=== PATIENT | male | born 1970 | race Caucasian/White ===

== ENCOUNTER 2020-12-28 21:18 | Inpatient (IN) | payer OTHER, SELFPAY ==
[2020-12-28] VITALS (10 sets, daily range): BP systolic 87–132; BP diastolic 44–83; PULSE 64–121; RESP 13–20; TEMP 36.5–36.8; O2SAT 90–100; BMI 24.3; BMI 25.8; BMI 25.4
--- NOTE | 2020-12-28 | IR_ITS ---
APPROVED REPORT Patient Location: [facility]: JANAY Gimenez RT (R) PROCEDURES Left heart catheterization Left ventriculogram Selective coronary angiogram Thrombectomy followed by drug-eluting stent deployment to the proximal dominant right coronary artery Drug-eluting stent deployment to the proximal and mid LAD in a contiguous manner INDICATION Acute inferior lateral ST elevation myocardial infarction, Coronary artery disease, Severe LAD disease Informed consent was obtained prior to the procedure. COMPLICATIONS None Estimated Blood Loss: Less than 10 mls TECHNIQUE One percent lidocaine used to anesthetize the right anterior aspect of the wrist. The right radial artery was accessed via the Seldinger technique. A 6 British sheath was placed in the right radial artery. 2.5 mg of verapamil, 800 mcg of nitroglycerin, 1mg Lidocaine and 5000 U Heparin were given through the arterial sheath. A trap catheter was used to intubate the dominant right coronary artery and angiography was performed. A Choice PT extra-support wire was used to push through the acute occlusion and a penumbra catheter was then used to aspirate a thrombus thereby restoring JESUS ALBERTO-3 flow. IV phenylephrine was required for blood pressure support. A 3 mm x 38 mm resolute Vern stent was deployed at 20 karine reducing the critical disease to 0%. JESUS ALBERTO 0 flow was present at the beginning of the procedure with JESUS ALBERTO-3 flow at the end of the procedure. Following this the same catheter was used to perform left heart catheterization and left ventriculogram. The catheter was then placed in the left main artery where angiography demonstrated severe LAD disease. Choice PT wire was placed distally and a 3.5 x 26 mm resolute [place] stent was deployed at 16 karine reducing the severe stenosis to 0%. Distally there was a hazy 50% stenosis therefore an additional 3.5 x 15 mm resolute [place] stent was deployed at 12 karine distal to the first stent yet still overlapping it. The balloon was brought back between the 2 stents and deployed at 16 karine for meshing. JESUS ALBERTO-3 flow was present before and after the procedure. After achieving excellent angiographic results the apparatus was removed the sheath was removed good hemostasis was achieved using TR banding patient was transferred to the postop holding area stable condition. Intermittent heparin was administered based on ACT results ANGIOGRAPHIC RESULTS The left main artery Normal The left anterior descending artery Has a proximal concentric 70 to 80% stenosis followed by mid vessel 30 and 40% stenoses The circumflex artery Nondominant with mild 10% luminal irregularities The right coronary artery Dominant vessel initially proximally occluded. Following stenting the vessel was widely patent with persistent distal 40% stenoses which extended into the posterior lateral branch with mild 10% stenosis in the posterior descending artery The CARY ventriculogram reveals Dilated ventricle inferior hypokinesis estimate ejection fraction 45% The left ventricular end-diastolic pressure 20 mmHg IMPRESSION Coronary disease as described above Successful thrombectomy of the proximal dominant right coronary artery followed by drug-eluting stent deployment 100% occlusion reduced to 0% with 1 drug-eluting stent Severe disease in the proximal to mid LAD with successful stenting the proximal to mid LAD in a contiguous manner reducing the severe disease to 0% Dilated ventricle with regional wall motion abnormality and mildly reduced ejection fraction Mildly elevated LVEDP PLAN 1. Brilinta 90 twice daily plus aspirin 81 mg daily 2. LDL less than 55 3. FRANCINE inhibitors and beta-blockers once hemodynamicall
--- NOTE | 2020-12-28 21:15 | ECG_ITS ---
APPROVED REPORT Exam: Resting ECG HR:79 bpm ECG Measurements Heart Rate 79 AXES NE 140 P 56 QRSd 86 QRS 63 QT 336 T 97 QTc 385 Conclusion Sinus rhythm with occasional premature ventricular complexes Possible Left atrial enlargement Inferior infarct, possibly acute Anterior infarct, possibly acute Lateral injury pattern ACUTE MA Consider right ventricular involvement in acute inferior infarct Abnormal ECG Electronically signed by : Clint Jules, 12/29/2020 19:36:23
--- NOTE | 2020-12-28 21:18 | PC.NURSE ---
stemi alert called prior to arrival of patient. dr rg and cath team en route to facility. pt placed in gown, groin and wrist shaved. received 500NS fluids prior to arrival via ems and IV to RAC. during this time patient stated i'm a little dizzy , eyes rolled back in his head and he became unresponsive. ZOLL monitor showed vfib. ZOLL charged to 120J, one shock given, immediate response of HR noted. pt woke up immediately.
--- NOTE | 2020-12-28 21:25 | XR_ITS ---
PROCEDURE: XR CHEST PORTABLE CLINICAL HISTORY: STEMI ALERT, CHEST PAIN COMPARISON: CR CXR CHEST(2 VIEWS-NOT PORTABLE) from 12/20/2016 FINDINGS: The cardiomediastinal silhouette and pulmonary vascularity are within normal limits. The lungs are clear without infiltrates, suspicious nodules, or pleural effusions. Is an old right 4th rib fracture an old 7th and 8th rib fractures. IMPRESSION: No acute findings. Dictated by: Jeremy Leon MD 12/29/2020 05:40 Jeremy Leon MD in [place] 12/29/2020 05:40
--- NOTE | 2020-12-28 21:32 | HMH.EDCP ---
ED Disposition Clinical Impression: Ventricular fibrillation, Tobacco use ST elevation myocardial infarction (STEMI) Qualifiers: Involved coronary artery: unspecified coronary artery Qualified Code(s): I21.3 - ST elevation (STEMI) myocardial infarction of unspecified site Hyperlipidemia Qualifiers: Hyperlipidemia type: unspecified Qualified Code(s): E78.5 - Hyperlipidemia, unspecified Disposition: Admitted As Inpatient Condition on Discharge: Critical - Critical Care Critical Care Time: No Attestation: On 12/28/20, the high probability of a clinically significant, sudden or life threatening deterioration of the following system(s) required my full and direct attention, intervention and personal management. The time I documented below is in addition to time spent performing reported procedures but includes the following listed in this critical care notation. Medical Decision Making - Medical Records Medical records reviewed: Yes: I reviewed the patient's medical records. - Mckay Inquiry Pt receiving controlled substance: No Vital Signs: 12/28/20 21:17 Temperature 98.2 F Temperature Source Oral Pulse Rate [Right Brachial] 112 H Respiratory Rate 18 Blood Pressure [Right Arm] 132/83 Blood Pressure Mean [Right Arm] 99 Blood Pressure Source [Right Arm] Automatic Cuff Blood Pressure Position [Right Arm] Sitting 02 Sat by Pulse Oximetry 98 Oxygen Delivery Method Room Air - Lab Data Lab results reviewed: Yes: I reviewed the patient's lab results. Lab Results 12/28/20 21:32: WBC 19.8 H, RBC 5.43, Hgb 16.9, Hct 50.2, MCV 92.5, MCH 31.2, MCHC 33.7, RDW 13.5, Plt Count 233, MPV 7.8, Neut % (Auto) 88.7 H, Lymph % (Auto) 6.3 L, [place] % (Auto) 4.5, Eos % (Auto) 0.1, Baso % (Auto) 0.5, Neut # (Auto) 17.5 H, Lymph # (Auto) 1.3, [place] # (Auto) 0.9, Eos # (Auto) 0.0, Baso # (Auto) 0.1 12/28/20 21:32: Sodium 137, Potassium 3.7, Chloride 102, Carbon Dioxide 28, Anion Gap 10.7, BUN 18, Creatinine 1.10, Estimated Creat Clear 82, Estimated GFR 71, Est GFR ( Amer) 85, Glucose 146 H, Calcium 9.6, Troponin I 0.43 H, NT-Pro-B Natriuret Pep 205 H 12/28/20 21:32: Total Bilirubin 0.5, Direct Bilirubin 0.2, Conjugated Bilirubin 0.0, Indirect Bilirubin 0.3, Unconjugated Bilirubin 0.3, AST 41, ALT 34, Alkaline Phosphatase 81, Total Protein 7.4, Albumin 4.5, Triglycerides 230 H, Cholesterol 243 H, LDL Cholesterol Direct 158.06 H, VLDL Cholesterol 46 H, HDL Cholesterol 51, Cholesterol/HDL Ratio 4.8 H Result diagrams: 12/28/20 21:32 12/28/20 21:32 Orders (Tests/Meds): ED MEDICATIONS Generic Name Dose Route Start Last Admin Trade Name Freq PRN Reason Stop Dose Admin Diphenhydramine HCl 50 mg 12/28/20 21:23 12/28/20 21:44 Diphenhydramine 50mg/Ml Vial IV 12/28/20 21:24 50 mg ONCE ONE Administration Fentanyl Citrate 25 mcg 12/28/20 21:23 12/28/20 22:09 Fentanyl 100mcg/2ml Vial IV 12/29/20 21:23 100 mcg Q3MINP PRN Administration Moderate to Severe Pain Fentanyl Citrate 50 mcg 12/28/20 21:23 Fentanyl 100mcg/2ml Vial IV 12/29/20 21:23 Q3MINP PRN Moderate to Severe Pain Fentanyl Citrate 25 mcg 12/28/20 21:23 Fentanyl 250mcg/5ml Vial IV 12/29/20 21:23 Q3MINP PRN Moderate to Severe Pain Fentanyl Citrate 50 mcg 12/28/20 21:23 Fentanyl 250mcg/5ml Vial IV 12/29/20 21:23 Q3MINP PRN Moderate to Severe Pain Flumazenil 0.2 mg 12/28/20 21:23 Flumazenil 0.1mg/Ml 5ml Vial IV 12/28/20 23:00 NEEDED PRN Sedation Heparin Sodium (Porcine) 10,000 unit 12/28/20 21:23 12/28/20 22:10 Heparin 1,000 Units/Ml 10ml Vial (Brick Tender) IV 12/29/20 01:23 5,000 unit NEEDED PRN Administration Emergency [place] Plant Supervisor Heparin Sodium/Sodium Chloride 3,000 unit 12/28/20 21:23 12/28/20 21:44 Heparin 1,000 Units/500ml Ns (Brick Tender) IV 12/28/20 21:24 3,000 unit ONCE ONE Administration Sodium Chloride 1,000 mls @ 25 mls/hr 12/28/20 21:30
--- NOTE | 2020-12-28 21:35 | PC.NURSE ---
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 reported to silvia bird and silvia pantoja
[2020-12-28 21:40] LABS: Basophils # 0.1 K/mm3 (0-0.2); Basophils % 0.5 % (0.1-2.0); Eosinophils % 0.1 % (0.1-12.0); Hematocrit 50.2 % (42.0-52.0); Hemoglobin 16.9 g/dL (14.1-18.0); Lymphocytes # 1.3 K/mm3 (0.7-4.5); Lymphocytes % 6.3 % (10-50); Mean Corpuscular HGB Conc 33.7 g/dL (31.8-35.4); Mean Corpuscular Hemoglobin 31.2 pg (27.0-31.2); Mean Corpuscular Volume 92.5 fl (80-94); Mean Platelet Volume 7.8 fl (7.4-10.4); Monocytes # 0.9 K/mm3 (0.1-1.0); Monocytes % 4.5 % (1.7-9.3); Neutrophils # 17.5 K/mm3 (1.8-7.8); Neutrophils % 88.7 % (37.0-80.0); Platelet Count 233 K/mm3 (142-424); Red Blood Count 5.43 M/mm3 (4.60-6.20); Red Cell Distribution Width 13.5 % (11.5-17.5); White Blood Count 19.8 K/mm3 (4.8-10.8)
[2020-12-28 21:43] LABS: MANUAL DIFFERENTIAL MANUAL DIFFERENTIAL (MANUAL DIFF)
[2020-12-28 21:48] LABS: Chloride 102 mmol/L (98-107); Potassium 3.7 mmoL/L (3.5-5.1); Sodium 137 mmol/L (136-145)
[2020-12-28 21:50] LABS: Alanine Aminotransferase 34 U/L (12-78); Aspartate Amino Transferase 41 U/L (17-59); Bilirubin,Unconjugated 0.3 mg/dL (0.0-1.1)
[2020-12-28 21:51] LABS: Albumin Level 4.5 g/dl (3.5-5.0); Alkaline Phosphatase 81 U/L (38-126); Anion Gap 10.7 mEq/L (5-15); Bilirubin,Direct 0.2 mg/dl (0.0-0.4); Bilirubin,Indirect 0.3 mg/dL (0.0-0.9); Bilirubin,Total 0.5 mg/dl (0.2-1.3); Blood Urea Nitrogen 18 mg/dl (9-20); Carbon Dioxide 28 mmol/L (22.0-30.0); Chol/HDL Ratio 4.8 (1-3.5); Cholesterol 243 mg/dl (140-200); Creatinine Clearance Estimated 82 mL/min (50-200); Estimated Glomerular Filt Rate 71 ml/min (>60); GFR (African American) 85 ML/MIN (>60); HDL Cholesterol 51 mg/dl (40-60); Total Protein,Serum 7.4 g/dl (6.3-8.2); Triglycerides 230 mg/dl (30-150); VLDL Cholesterol 46 mg/dL (0-40)
[2020-12-28 21:52] LABS: Calcium 9.6 mg/dl (8.4-10.2); Glucose 146 mg/dl (74-100)
[2020-12-28 22:01] LABS: Adenovirus,PCR Not Detected (NotDetected); Bordetella Pertussis Not Detected (NotDetected); Chlamydophila Pneumoniae, PCR Not Detected (NotDetected); Coronavirus 19, PCR Not Detected (NotDetected); Coronavirus 229E Not Detected (NotDetected); Coronavirus NL63 Not Detected (NotDetected); Coronavirus OC43 Not Detected (NotDetected); Coronovirus HKU1,PCR Not Detected (NotDetected); Human Metapneumovirus Not Detected (NotDetected); Influenza A, PCR Not Detected (NotDetected); Influenza AH1, 2009 Not Detected (NotDetected); Influenza AH1, PCR Not Detected (NotDetected); Influenza AH3,PCR Not Detected (NotDetected); Influenza B, PCR Not Detected (NotDetected); Mycoplasma Pneumoniae, PCR Not Detected (NotDetected); Parainfluenza 1, PCR Not Detected (NotDetected); Parainfluenza 2, PCR Not Detected (NotDetected); Parainfluenza 3, PCR Not Detected (NotDetected); Parainfluenza 4, PCR Not Detected (NotDetected); Respiratory Syncytial Virus Not Detected (NotDetected); Rhinovirus/Enterovirus Not Detected (NotDetected)
[2020-12-28 22:02] LABS: Direct LDL Cholesterol 158.06 mg/dL (100-129); NT Pro Brain Natriuretic Pep. 205 pg/mL (0-125)
[2020-12-28 22:06] LABS: Troponin I 0.43 ng/ml (0.00-0.034)
[2020-12-28 22:24] LABS: Thyroid Stimulating Hormone 1.98 uIU/mL (0.465-4.68)
[2020-12-28 22:27] LABS: CATHL Activated Clotting Time 242 SEC (74-125)
[2020-12-28 22:28] LABS: CATHL Activated Clotting Time 277 SEC (74-125)
--- NOTE | 2020-12-28 23:09 | PC.NURSE ---
patient up to floor via stretcher.
[2020-12-28 23:58] LABS: Lymphocytes % 9 % (10-50); Monocytes % 1 % (2-9); Neutrophils % 90 % (42-76); Platelet Estimate Normal; RBC Morphology Normal; Total Cells Counted 100
[2020-12-29] VITALS (25 sets, daily range): BP systolic 95–141; BP diastolic 58–99; PULSE 50–77; RESP 16–18; TEMP 36.6–36.8; O2SAT 94–100; BMI 25.4
--- NOTE | 2020-12-29 04:54 | PC.NURSE ---
Patient has not slept much during the night due to cath site. When initially letting air out of the band, site started bleeding so the air was put back in. I have been able to get 8 mL of air out so far (started with 18) safely with no bleeding. He has shown NSR with ST elevation and inverted T waves on telemetry. Patient has had a run of V tach 4 times; between 4 and 9 beats each time. No change in symptoms during this time. Pulses are the same, 2+ in all areas except pedal pulses 1+ (right radial not assessed due to cath site). Vital signs have remained stable. Patient was drowsy when first brought to the floor and 2L/NC was placed due to SpO2 < 90%. Will try to wean once awake.
[2020-12-29 06:54] LABS: Anion Gap 9.3 mEq/L (5-15); Blood Urea Nitrogen 13 mg/dl (9-20); Carbon Dioxide 23 mmol/L (22.0-30.0); Chloride 109 mmol/L (98-107); Creatinine Clearance Estimated 111 mL/min (50-200); Estimated Glomerular Filt Rate 102 ml/min (>60); GFR (African American) 123 ML/MIN (>60); Glucose 104 mg/dl (74-100); Potassium 4.3 mmoL/L (3.5-5.1); Sodium 137 mmol/L (136-145)
--- NOTE | 2020-12-29 06:59 | HMH.HP ---
*Admission Date: 12/28/20 *Chief complaint: STEMI, chest pain, V-fib *History of present illness: Mr. Tellez is a 50-year-old male with no significant cardiac history. He is a longtime smoker, no other risk factors. Presented to the ER last night after onset of chest pain while having sexual intercourse. States he had taken off the market Viagra prior to sex. Developed chest pain that did not get better with cessation of activity. Took naproxen and called 911. EMS arrived and administered nitroglycerin with no improvement in symptoms. On arrival to the ER went into V. fib necessitating cardioversion. Was urgently taken to the Security Incident Handler for intervention. Patient was found to have proximal LAD stenosis of 70 to 80% necessitating stenting. Improvement in flow immediately after procedure. One drug-eluting stent deployed. Also noted to have dilated ventricle with regional wall motion and mildly reduced EF. Echo pending this morning. Patient has had no further chest pain since intervention. Blood pressures remained stable. No further arrhythmias appreciated overnight. Patient appears quite pensive this morning and worried because of the event. States he had not been having any chest pain or shortness of breath with exertion at work and walks between 10 to 15 miles a day. Also reports however having a similar episode a month ago that resolved spontaneously with cessation of activity. [facility] History I have reviewed the patient's past medical history: Yes Medical History: Denies:: Cancer, Diabetes Mellitus Type 1, Diabetes Mellitus Type 2, MRSA *Have you ever received a pneumonia vaccine?: No *Have you received a flu vaccine this season?: No Other Surgeries: Yes: No Previous Surgery - *Social History Last grade of school completed: 11th or 12th Smoking Status: Current every day smoker Tobacco Type: cigarettes # Packs/Day (cigarettes): 1 Alcohol Intake: never *Occupational Status:: employed Housing: house Household Members: none *Travel in the last 8 weeks: None Family Hx:: No significant family history Review of Systems - Review of Systems Review of systems:: pertinent systems reviewed and negative unless documented below (14 point review of systems performed, pertinent positives and negatives as per HPI) - *Neurologic Denies headache(s), Denies seizure-like activity Meds Home Medications Medication Instructions Recorded Confirmed Type No Known Home Medications 12/28/20 12/28/20 History Allergies Allergy/AdvReac Type Severity Reaction Status Date / Time No Known Allergies Allergy Verified 12/25/20 11:11 Exam Vital signs and Labs for Last 24 Hours: Temp Pulse Resp BP Pulse Ox 97.8 F 68 18 116/77 98 12/28/20 23:18 12/29/20 05:30 12/29/20 05:30 12/29/20 05:30 12/29/20 05:30 Laboratory Results - last 24 hr 12/28/20 21:32: WBC 19.8 H, RBC 5.43, Hgb 16.9, Hct 50.2, MCV 92.5, MCH 31.2, MCHC 33.7, RDW 13.5, Plt Count 233, MPV 7.8, Neut % (Auto) 88.7 H, Lymph % (Auto) 6.3 L, [place] % (Auto) 4.5, Eos % (Auto) 0.1, Baso % (Auto) 0.5, Neut # (Auto) 17.5 H, Lymph # (Auto) 1.3, [place] # (Auto) 0.9, Eos # (Auto) 0.0, Baso # (Auto) 0.1, Total Counted 100, Neutrophils % (Manual) 90 H, Lymphocytes % (Manual) 9 L, Monocytes % (Manual) 1 L, Platelet Estimate Normal, RBC Morphology Normal 12/28/20 21:32: Sodium 137, Potassium 3.7, Chloride 102, Carbon Dioxide 28, Anion Gap 10.7, BUN 18, Creatinine 1.10, Estimated Creat Clear 82, Estimated GFR 71, Est GFR ( Amer) 85, Glucose 146 H, Calcium 9.6, Troponin I 0.43 H, NT-Pro-B Natriuret Pep 205 H, TSH 1.98 12/28/20 21:32: Total Bilirubin 0.5, Direct Bilirubin 0.2, Conjugated Bilirubin 0.0, Indirect Bilirubin 0.3, Unconjugated Bilirubin 0.3, AST 41, ALT 34, Alkaline Phosphatase 81, Total Protein 7.4, Albumin 4.5, Triglycerides 230 H, Cholesterol 243 H, LDL Cholesterol Direct 158.06 H, VLDL Cholesterol 46 H, HDL Cholesterol 51, Cholesterol/HDL Ratio 4.8 H 12/28/20 21:4
[2020-12-29 07:44] LABS: Basophils % 0.3 % (0.1-2.0); Eosinophils % 0.1 % (0.1-12.0); Hematocrit 45.4 % (42.0-52.0); Lymphocytes # 1.6 K/mm3 (0.7-4.5); Lymphocytes % 15.5 % (10-50); Mean Corpuscular HGB Conc 32.8 g/dL (31.8-35.4); Mean Corpuscular Hemoglobin 31.4 pg (27.0-31.2); Mean Corpuscular Volume 95.6 fl (80-94); Mean Platelet Volume 8.1 fl (7.4-10.4); Monocytes # 0.6 K/mm3 (0.1-1.0); Monocytes % 6.2 % (1.7-9.3); Neutrophils % 77.8 % (37.0-80.0); Platelet Count 170 K/mm3 (142-424); Red Blood Count 4.74 M/mm3 (4.60-6.20); Red Cell Distribution Width 13.4 % (11.5-17.5); White Blood Count 10.3 K/mm3 (4.8-10.8)
[2020-12-29 07:48] LABS: Hemoglobin 14.9 g/dL (14.1-18.0)
--- NOTE | 2020-12-29 07:56 | PC.NURSE ---
2100 0f 12/28/2020 was notifed to call labor service representative team in ...latonia dent,marge woodson,and kit verdugo notified. I NOTIFIED RADIOLOGY TO TURN ON NEEDED EQUIPMENT IN [place]GLISH FACULTY MEMBER.
--- NOTE | 2020-12-29 08:00 | CA_ITS ---
APPROVED REPORT EXAM: Comprehensive 2D, Doppler, and color-flow Echocardiogram Business Intelligence Developer: Sharmin Pulliam RT(R) Ht: 5 ft 6 in Wt: 160lbs BSA: 1.82 BP: 132/83 mmHg Indications: STEMI, CP, smoker, cath 12/28/20 ef 45% 2D Dimensions LVOT 1.87 cm (M/F) 1.5-2.5 LVEF (Buitrago's) 45.10 % M: 52 - 72 LV Volume 91.70 mL M: 62 - 150 LV Volume Index 50.38 mL/m2 M: 34 - 74 LA Volume 21.60 mL LA Volume Index 11.86 mL/m2 (M/F) 16-34 M-Mode Dimensions RVDd 2.54 cm (0.9-2.6) LA Diam 3.48 cm (1.9-4.0) LVDd 4.29 cm (3.5-5.7) Ao Diam 2.55 cm (2.0-3.7) LVDs 3.43 cm (3.5-5.7) IVSd 1.29 cm (0.6-1.1) PWd 0.61 cm (0.6-1.1) EF (Teich) 41.30% FS 20.00% EDV (Teich) 82.60 mL ESV (Teich) 48.50 mL LV Diastology E Decel Time 163.00 (160-240 msec) E/A Ratio 0.9 MED E' 5.60 (< 7 cm/sec) E'/MED E' Ratio 13.95 (>14) LAT E' 8.10 (<10 cm/sec) E/LAT E' Ratio 9.64 (>14) Mitral Valve MV E Max Fabian. 78.00 (40-130 cm/s) MV A Velocity 91.00 (40-130 cm/s) E/A Ratio 0.85 MV Decel. Time 163.00 (160-240 ms) MV PHT 48.00 ms Left Ventricle Left atrium is mildly enlarged, left ventricle is normal size, mild concentric left ventricular hypertrophy, visually estimated ejection fraction approximately 45%, there is marked hypokinesis involving the inferior apical and inferior wall. Grade 1 diastolic dysfunction seen without tissue Doppler evidence of raise left atrial pressure. Right Ventricle Right atrium and right ventricle are normal size and contractility. Aortic valve is thickened and calcified without aortic stenosis or aortic insufficiency. Mitral Valve Mitral valve is grossly normal, there is trace mitral regurgitation. Tricuspid Valve Tricuspid grossly normal, there is trace tricuspid regurgitation, tricuspid regurgitation jet velocity is inadequate for calculation of the right ventricular systolic pressure. Pulmonic Valve Pulmonic valve is poorly visualized. Great Vessels Aortic root is normal size. Pericardium No significant pericardial effusion noted. Conclusion 1. Normal left ventricular size, mild concentric left ventricular hypertrophy, visually estimated ejection fraction 45% with multiple segmental wall motion abnormality described above, grade 1 diastolic dysfunction seen without tissue Doppler evidence of raise left atrial pressure. 2. Trace mitral and tricuspid regurgitation. 3. No significant pericardial effusion noted. Electronically signed by : Ari Florian, 12/29/2020 21:59:34
[2020-12-29 08:01] LABS: Calcium 8.2 mg/dl (8.4-10.2)
--- NOTE | 2020-12-29 08:09 | HMH.PHAVTE ---
[facility] Pharmacy VTE Monitoring - Patient Demographics Admission date: 12/29/20 Report Date: 12/29/20 Time: 08:09 Allergies/Adverse Reactions: Patient Allergies No Known Allergies Allergy (Verified 12/25/20 11:11) Height: 1.68 m Weight: 71.696 kg Patient Problems: Current Active Problems ST elevation myocardial infarction (STEMI) (Acute) Ventricular fibrillation (Acute) Tobacco use (Acute) Hyperlipidemia (Acute) - VTE Risk Labs: VTE Related Lab Results Hgb 14.9 g/dL (14.1-18.0) D 12/29/20 05:35 Hct 45.4 % (42.0-52.0) 12/29/20 05:35 Plt Count 170 K/mm3 (142-424) D 12/29/20 05:35 BUN 13 mg/dl (9-20) D 12/29/20 05:35 Creatinine 0.80 mg/dl (0.66-1.25) D 12/29/20 05:35 Estimated Creat Clear 111 mL/min (50-200) 12/29/20 05:35 Was VTE Risk Assessment Performed: Yes VTE Score: 1 VTE Risk Level: Very Low Risk Clinical Trial Participant: No - Prophylaxis VTE Prophylaxis Ordered?: Yes Types of VTE Prophylaxis: TEDS Knee High
--- NOTE | 2020-12-29 10:35 | HMH.CNCARD ---
History of Present Illness Consult date: 12/29/20 Requesting physician: Albert Yen Consult reason: chest pain Chief complaint: chest pain History of present illness: This is a 50-year-old gentleman who was admitted to the hospital with chest pain. The patient states that the chest pain started after having sex. He states that he had taken an off market Viagra prior to having sex and then after having sex he had sudden onset of chest pain. He states that this was a pressure sensation in the center of his chest. The patient states that the chest pain would not go away so he took some naproxen and then called 911. He states that the pain radiated to his bilateral shoulders and arms and up into his neck and back. He states he was short of breath and diaphoretic with the chest pain. He also had significant nausea with the chest pain. He states nothing was helping to improve his chest pain. It did get worse with exertion. After calling 911 he was treated with fluids and nitroglycerin x2 doses by EMS with no relief in his symptoms. The patient states that this was a severe 10 out of 10 pain. He had never had symptoms like this before. The patient was taken directly to the cardiac catheterization lab and had thrombectomy and stenting to his right coronary artery as well as stenting to his LAD. He tolerated the procedure well and will remain on dual antiplatelet therapy with Brilinta and aspirin. This morning he states he is feeling much better. He denies any chest pain or pressure this morning. He denies any shortness of breath or edema. He denies any fever, chills, nausea, vomiting, diarrhea, PND or orthopnea. The patient did have ventricular fibrillation during his [place] History I have reviewed the patient's past medical history: Yes Medical History: Reports:: Coronary Artery Disease, Hyperlipidemia Denies:: Cancer, Diabetes Mellitus Type 1, Diabetes Mellitus Type 2, MRSA *Have you ever received a pneumonia vaccine?: No *Have you received a flu vaccine this season?: No Other Surgeries: Yes: No Previous Surgery - *Social History Last grade of school completed: 11th or 12th Smoking Status: Current every day smoker Tobacco Type: cigarettes # Packs/Day (cigarettes): 1 Alcohol Intake: never *Occupational Status:: employed Housing: house Household Members: none *Travel in the last 8 weeks: None Family Hx:: Coronary Artery Disease Meds Home Medications Medication Instructions Recorded Confirmed Type No Known Home Medications 12/28/20 12/28/20 History Allergies Allergy/AdvReac Type Severity Reaction Status Date / Time No Known Allergies Allergy Verified 12/25/20 11:11 Exam Vital signs and Labs for Last 24 Hours: Temp Pulse Resp BP Pulse Ox 97.8 F 67 18 120/83 97 12/28/20 23:18 12/29/20 10:00 12/29/20 10:00 12/29/20 10:00 12/29/20 10:00 Laboratory Results - last 24 hr 12/28/20 21:32: WBC 19.8 H, RBC 5.43, Hgb 16.9, Hct 50.2, MCV 92.5, MCH 31.2, MCHC 33.7, RDW 13.5, Plt Count 233, MPV 7.8, Neut % (Auto) 88.7 H, Lymph % (Auto) 6.3 L, [place] % (Auto) 4.5, Eos % (Auto) 0.1, Baso % (Auto) 0.5, Neut # (Auto) 17.5 H, Lymph # (Auto) 1.3, [place] # (Auto) 0.9, Eos # (Auto) 0.0, Baso # (Auto) 0.1, Total Counted 100, Neutrophils % (Manual) 90 H, Lymphocytes % (Manual) 9 L, Monocytes % (Manual) 1 L, Platelet Estimate Normal, RBC Morphology Normal 12/28/20 21:32: Sodium 137, Potassium 3.7, Chloride 102, Carbon Dioxide 28, Anion Gap 10.7, BUN 18, Creatinine 1.10, Estimated Creat Clear 82, Estimated GFR 71, Est GFR ( Amer) 85, Glucose 146 H, Calcium 9.6, Troponin I 0.43 H, NT-Pro-B Natriuret Pep 205 H, TSH 1.98 12/28/20 21:32: Total Bilirubin 0.5, Direct Bilirubin 0.2, Conjugated Bilirubin 0.0, Indirect Bilirubin 0.3, Unconjugated Bilirubin 0.3, AST 41, ALT 34, Alkaline Phosphatase 81, Total Protein 7.4, Albumin 4.5, Triglycerides 230 H, Cholesterol 243 H, LDL Cholesterol Direct 158.06 H, VLDL Cholesterol 46 H, HDL C
--- NOTE | 2020-12-29 17:36 | PC.NURSE ---
Pt is alert and oriented x3. Lungs are clear, bowel sounds active x4. He was weaned from 2L NC to RA and tolerated well. O2 sat is currently 98% on RA. Dressing to right radial site is clean, dry, and intact. Dried blood noted on skin around dressing from radial band but dressing itself is clean. He denies chest pain, sob, n/v and diaphoresis. NSR w/inverted t wave on telemetry. He has had a couple runs of asymptomatic vtach. Runs have been no longer than 6 beats. No complaints verbalized. Will continue to monitor.
--- NOTE | 2020-12-29 23:43 | PC.NURSE ---
He is A&Ox4. Reports some SOA and is wearing 2LPM n/c per his request for comfort. He denies chest pain. He reported some back pain but states it is tolerable. Bradycardia while asleep and NSR while awake with ST elevation and inverted T wave.
[2020-12-30] VITALS (12 sets, daily range): BP systolic 96–152; BP diastolic 57–97; PULSE 59–92; RESP 16–18; TEMP 36.5–36.9; O2SAT 96–100; BMI 24.7
[2020-12-30 06:27] LABS: Basophils % 0.3 % (0.1-2.0); Eosinophils # 0.1 K/mm3 (0.0-0.4); Eosinophils % 0.9 % (0.1-12.0); Hematocrit 42.4 % (42.0-52.0); Hemoglobin 13.8 g/dL (14.1-18.0); Lymphocytes # 2.1 K/mm3 (0.7-4.5); Lymphocytes % 24.4 % (10-50); Mean Corpuscular HGB Conc 32.6 g/dL (31.8-35.4); Mean Corpuscular Volume 95.3 fl (80-94); Mean Platelet Volume 8.2 fl (7.4-10.4); Monocytes # 0.7 K/mm3 (0.1-1.0); Monocytes % 7.8 % (1.7-9.3); Neutrophils # 5.6 K/mm3 (1.8-7.8); Neutrophils % 66.4 % (37.0-80.0); Platelet Count 147 K/mm3 (142-424); Red Blood Count 4.45 M/mm3 (4.60-6.20); Red Cell Distribution Width 13.5 % (11.5-17.5); White Blood Count 8.4 K/mm3 (4.8-10.8)
[2020-12-30 06:34] LABS: Anion Gap 5.2 mEq/L (5-15); Blood Urea Nitrogen 11 mg/dl (9-20); Calcium 8.5 mg/dl (8.4-10.2); Carbon Dioxide 28 mmol/L (22.0-30.0); Chloride 111 mmol/L (98-107); Creatinine Clearance Estimated 108 mL/min (50-200); Estimated Glomerular Filt Rate 102 ml/min (>60); GFR (African American) 123 ML/MIN (>60); Glucose 99 mg/dl (74-100); Potassium 4.2 mmoL/L (3.5-5.1); Sodium 140 mmol/L (136-145)
--- NOTE | 2020-12-30 08:11 | HMH.DCSUM ---
General - General Admission date:: 12/28/20 Discharge date: 12/30/20 HPI HPI: Mr. Tellez is a 50-year-old male with no significant cardiac history. He is a longtime smoker, no other risk factors. Presented to the ER last night after onset of chest pain while having sexual intercourse. States he had taken off the market Viagra prior to sex. Developed chest pain that did not get better with cessation of activity. Took naproxen and called 911. EMS arrived and administered nitroglycerin with no improvement in symptoms. On arrival to the ER went into V. fib necessitating cardioversion. Was urgently taken to the [facility] for intervention. Patient was found to have proximal LAD stenosis of 70 to 80% necessitating stenting. Improvement in flow immediately after procedure. One drug-eluting stent deployed. Also noted to have dilated ventricle with regional wall motion and mildly reduced EF. Echo pending this morning. Patient has had no further chest pain since intervention. Blood pressures remained stable. No further arrhythmias appreciated overnight. Patient appears quite pensive this morning and worried because of the event. States he had not been having any chest pain or shortness of breath with exertion at work and walks between 10 to 15 miles a day. Also reports however having a similar episode a month ago that resolved spontaneously with cessation of activity. Hospital Course Hospital Course: Patient was admitted and urgently taken to heart cath, results as noted below: ANGIOGRAPHIC RESULTS The left main artery Normal The left anterior descending artery Has a proximal concentric 70 to 80% stenosis followed by mid vessel 30 and 40% stenoses The circumflex artery Nondominant with mild 10% luminal irregularities The right coronary artery Dominant vessel initially proximally occluded. Following stenting the vessel was widely patent with persistent distal 40% stenoses which extended into the posterior lateral branch with mild 10% stenosis in the posterior descending artery The CARY ventriculogram reveals Dilated ventricle inferior hypokinesis estimate ejection fraction 45% The left ventricular end-diastolic pressure 20 mmHg IMPRESSION Coronary disease as described above Successful thrombectomy of the proximal dominant right coronary artery followed by drug-eluting stent deployment 100% occlusion reduced to 0% with 1 drug-eluting stent Severe disease in the proximal to mid LAD with successful stenting the proximal to mid LAD in a contiguous manner reducing the severe disease to 0% Dilated ventricle with regional wall motion abnormality and mildly reduced ejection fraction Mildly elevated LVEDP PLAN 1. Brilinta 90 twice daily plus aspirin 81 mg daily 2. LDL less than 55 3. FRANCINE inhibitors and beta-blockers once hemodynamically stable 4. Supportive care with telemetry monitoring over the next 48 hours 5. Echocardiogram 6. Avoidance of tobacco products 7. Cardiac rehabilitation Patient did well over the next 36 hours. He will be discharged this afternoon pending continuing normal telemetry monitoring. We will follow him up closely in my office as well as with cardiology clinic. Patient will need home sleep study given his report of snoring and waking himself up at night with snoring. Objective Vital signs: Temp Pulse Resp BP Pulse Ox 97.7 F 61 17 135/86 97 12/30/20 04:00 12/30/20 06:00 12/29/20 20:00 12/30/20 06:00 12/30/20 06:00 no acute distress - *Routine HEENT Exam Head: Present: normocephalic Eye: Present: EOMI, PERRL ENT: Present: mucous membranes moist - *Routine Neck Exam Present: supple - *Routine Respiratory Exam Present: CTA bilaterally - *Routine Cardiovascular Exam Present: RRR - *Routine Abdominal Exam Present: soft, normoactive bowel sounds. Absent: tenderness - *Routine Extremities Exam Absent: cyanosis, clubbing, edema - *Routine Skin Exam
--- NOTE | 2020-12-30 10:45 | HMH.PHACLD ---
Lorenzo Tellez has received discharge medication counseling on the following medications: MD SENDING PATIENT HOME WITH SCRIPTS FOR ASPIRIN DR 81 MG DAILY, BRILINTA 90 MG BID, ATORVASTATIN 80 MG HS, METOPROLOL SUCCINATE 25 MG DAILY, AND LISINOPRIL 5 MG DAILY. MD ALSO SENDING PATIENT HOME WITH SCRIPT FOR NICOTINE PATCHES. COUNSELED PATIENT ON THE NEED TO STOP SMOKING.
--- NOTE | 2020-12-30 11:43 | HMH.PNCARD ---
Subjective Date: 12/30/20 Time: 11:43 Principal diagnosis: stemi Interval history: This is a 50-year-old gentleman who was admitted to the hospital with chest pain. The patient was found to have a STEMI and was taken directly to the cardiac catheterization laboratory and underwent thrombectomy and stenting to his right coronary artery as well as stenting to his LAD. The patient has tolerated the procedure well and will remain on dual antiplatelet therapy with Brilinta and aspirin. The patient denies any chest pain or pressure this morning. He denies any shortness of breath or edema. He denies any fever, chills, nausea, vomiting, diarrhea, PND orthopnea. The patient did have ventricular fibrillation during his [place] prior to going to the [facility] and did have to be shocked. He has had no recurrence of the ventricular fibrillation. He has had a few nonsustained runs of ventricular tachycardia. He was asymptomatic during these episodes. Exam Vital signs and Labs for Last 24 Hours: Temp Pulse Resp BP Pulse Ox 98.4 F 92 H 18 131/60 97 12/30/20 08:00 12/30/20 08:00 12/30/20 08:00 12/30/20 08:00 12/30/20 08:00 Laboratory Results - last 24 hr 12/30/20 06:02: WBC 8.4, RBC 4.45 L, Hgb 13.8 L, Hct 42.4, MCV 95.3 H, MCH 31.0, MCHC 32.6, RDW 13.5, Plt Count 147, MPV 8.2, Neut % (Auto) 66.4, Lymph % (Auto) 24.4, Coffey % (Auto) 7.8, Eos % (Auto) 0.9, Baso % (Auto) 0.3, Neut # (Auto) 5.6, Lymph # (Auto) 2.1, Coffey # (Auto) 0.7, Eos # (Auto) 0.1, Baso # (Auto) 0.0 12/30/20 06:02: Sodium 140, Potassium 4.2, Chloride 111 H, Carbon Dioxide 28 D, Anion Gap 5.2, BUN 11, Creatinine 0.80, Estimated Creat Clear 108, Estimated GFR 102, Est GFR ( Amer) 123, Glucose 99, Calcium 8.5 I & O for Last 24 hours: Intake & Output 12/27/20 12/28/20 12/29/20 12/30/20 23:59 23:59 23:59 23:59 Intake Total 850 / 850 1981 / 1981 1678 / 1678 Output Total 900 / 900 Balance 850 / 300 1082 / 1082 1677 / 8 Weight 158 lb 1 oz 158 lb 1 oz 154 lb 3 oz Narrative: Telemetry strip is sinus rhythm with a rate of 59. echo shows: 1. Normal left ventricular size, mild concentric left ventricular hypertrophy, visually estimated ejection fraction 45% with multiple segmental wall motion abnormality described above, grade 1 diastolic dysfunction seen without tissue Doppler evidence of raise left atrial pressure. 2. Trace mitral and tricuspid regurgitation. 3. No significant pericardial effusion noted. - Constitutional no acute distress, average body habitus - *Routine HEENT Exam Head: Present: normocephalic, atraumatic Eye: Present: EOMI, PERRL ENT: Present: mucous membranes moist - *Routine Neck Exam Present: supple, full ROM, normal carotid upstroke. Absent: JVD, carotid bruit, lymphadenopathy - *Routine Respiratory Exam Present: CTA bilaterally - *Routine Cardiovascular Exam Present: RRR, Normal S1, Normal S2. Absent: murmur - *Routine Abdominal Exam Present: soft, normoactive bowel sounds. Absent: tenderness, distended - *Routine Extremities Exam Present: full ROM, pulses intact, normal capillary refill. Absent: cyanosis, clubbing, edema - *Routine Skin Exam Present: intact, warm. Absent: erythema, rash - *Routine Neurological Exam Present: alert, oriented X3, CN II-XII intact. Absent: sensory deficit, motor deficit Progress Note: A&P (1) ST elevation myocardial infarction (STEMI) Status: Resolved (2) Ventricular fibrillation Status: Resolved (3) CAD (coronary artery disease) Status: Chronic (4) Hyperlipidemia Status: Chronic (5) Stented coronary artery Status: Chronic (6) Tobacco use Status: Chronic (7) Ventricular tachycardia Status: Acute Assessment and Plan for All Diagnoses:: plan: 1. The patient was admitted to the hospital with a STEMI. He underwent thrombectomy and stenting to the right coronary artery as well as stenting to the LAD. The patient will remain o
--- NOTE | 2020-12-30 13:09 | PC.NURSE ---
Clarified conversation with A Balwinder from earlier in the shift. pt is to not receive Beta Wm (Coreg) related to bradycardia. medication is on the mar but is to be dc
--- NOTE | 2020-12-30 13:13 | PC.NURSE ---
Per Dr Brown pt is to remain an inpatient until approx 2200 this evening r/t needing to stay until 48hr s/p STEMI/intervention. Family and patient request that since it will be such a late discharge, could the patient be discharged the following day instead. request approved by Dr Brown and Dr Jules. DC order to be cancelled at this time.
--- NOTE | 2020-12-30 13:48 | PC.NURSE ---
clarified with a black that it is ok for pt to come out of sd
[2020-12-31] VITALS: BP 114/56; PULSE 65; PULSE 70; RESP 17; TEMP 36.5; O2SAT 99
--- NOTE | 2020-12-31 00:32 | PC.NURSE ---
He is A&Ox4. He reports some SOA but continues on RA. VSS. DSG in place on his right wrist per his request. Denies chest pain.
[2020-12-31 03:51] VITALS: BP 115/75; PULSE 68; RESP 16; TEMP 36.6; O2SAT 95
[2020-12-31 04:00] VITALS: PULSE 70
[2020-12-31 05:00] VITALS: BMI 24.6
[2020-12-31 08:00] VITALS: BP 132/93; PULSE 63; RESP 16; TEMP 36.7; O2SAT 98
--- NOTE | 2020-12-31 09:35 | HMH.PNCARD ---
Subjective Date: 12/31/20 Time: 09:20 Principal diagnosis: stemi Interval history: This is a 50-year-old white gentleman who was admitted to the hospital with chest pain. He was found to have a STEMI and was taken to the [facility] and had thrombectomy and stenting to the right coronary artery as well as stenting to the LAD. He is on dual antiplatelet therapy with Brilinta and aspirin and tolerating this well. This morning he denies any chest pain or pressure. He denies any shortness of breath or edema. He denies any fever, chills, nausea, vomiting, diarrhea, PND or orthopnea. The patient did have discharge orders and yesterday but was unable to be discharged until 10 PM last night. He did not have a ride that late at night so he stayed overnight again and is being discharged this morning. Exam Vital signs and Labs for Last 24 Hours: Temp Pulse Resp BP Pulse Ox 98.1 F 63 16 132/93 H 98 12/31/20 08:00 12/31/20 08:00 12/31/20 08:00 12/31/20 08:00 12/31/20 08:00 I & O for Last 24 hours: Intake & Output 12/28/20 12/29/20 12/30/20 12/31/20 23:59 23:59 23:59 23:59 Intake Total 850 / 850 1981 2278 / 2278 360 / 360 Output Total 900 / 900 Balance 850 / 300 1082 / 1082 2278 / 2278 360 / 360 Weight 158 lb 1 oz 158 lb 1 oz 154 lb 3 oz 153 lb 3 oz - Constitutional no acute distress, average body habitus - *Routine HEENT Exam Head: Present: normocephalic, atraumatic Eye: Present: EOMI, PERRL ENT: Present: mucous membranes moist - *Routine Neck Exam Present: supple, full ROM, normal carotid upstroke. Absent: JVD, carotid bruit, lymphadenopathy - *Routine Respiratory Exam Present: CTA bilaterally - *Routine Cardiovascular Exam Present: RRR, Normal S1, Normal S2. Absent: murmur - *Routine Abdominal Exam Present: soft, normoactive bowel sounds. Absent: tenderness, distended - *Routine Extremities Exam Present: full ROM, pulses intact, normal capillary refill. Absent: cyanosis, clubbing, edema - *Routine Skin Exam Present: intact, warm. Absent: erythema, rash - *Routine Neurological Exam Present: alert, oriented X3, CN II-XII intact. Absent: sensory deficit, motor deficit Progress Note: A&P (1) ST elevation myocardial infarction (STEMI) Status: Resolved (2) Ventricular fibrillation Status: Resolved (3) CAD (coronary artery disease) Status: Chronic (4) Hyperlipidemia Status: Chronic (5) Stented coronary artery Status: Chronic (6) Tobacco use Status: Chronic (7) Ventricular tachycardia Status: Acute Assessment and Plan for All Diagnoses:: plan: 1. The patient was admitted to the hospital with a STEMI and had thrombectomy and stenting to the right coronary artery as well as stenting to the LAD. The patient will remain on Brilinta and aspirin for dual antiplatelet therapy. 2. The patient did have ventricular fibrillation prior to going to the cardiac catheterization laboratory where he had to be shocked. He has had a few nonsustained runs of ventricular tachycardia since being admitted but none overnight. He has been asymptomatic. The patient has been on telemetry for greater than 48 hours and is stable for discharge home at this time. 3. His coronary artery disease is likely stable. On Brilinta and aspirin. 4. His blood pressure is well controlled. 5. His LDL goal is less than 55. His LDL is 158. On Lipitor. 6. He has been started on lisinopril post SD. 7. His heart rate is too low for beta-jasmin. We will try to start this on an outpatient basis. 8. The patient does have cardiomyopathy with an ejection fraction of 45%. As mentioned above he is on lisinopril and will try to get a beta-jasmin started as an outpatient as his heart rate is too low at this time. 9. The patient is stable for discharge home from a cardiac standpoint. He will need to follow-up in cardiology clinic at the beginning of next week. Thank you for the opportunity to help krishna
== END 2020-12-31 10:29 | disposition home or self-care (01) | DRG 246 ==
LOC: ER 21:34 → CATHLAB 21:39 → 2ND 22:42
PROVIDERS: Internal Medicine; Admitting Provider Internal Medicine Adolescent Medicine; Emergency Provider Emergency Medicine; Visit Provider Internal Medicine Adolescent Medicine
PROC: 027135Z Dilation of Coronary Artery, Two Arteries with Two Drug-eluting Intraluminal Devices, Percutaneous Approach (ICD-10-PCS; principal; 2020-12-28 21:20)
DX: I21.19 ST elevation (STEMI) myocardial infarction involving other coronary artery of inferior wall (principal); I49.01 Ventricular fibrillation; I25.10 Atherosclerotic heart disease of native coronary artery without angina pectoris; Z72.0 Tobacco use
CPT/HCPCS: 36415; 71045; 80048; 80061; 80076; 83735; 83880; 84443; 84484; 85007; 85025; 85347; 87581; 87633; 87798; 92928; 92941; 93005; 93306; 93458; 96365; 96375; 99152; 99153; 99284; C1725; C1769; C1874; C1876; C9600; C9606; J1644; Q9967

== ENCOUNTER → 2021-01-06 13:17 | Outpatient (CLI) | payer OTHER, SELFPAY ==
[2021-01-06 13:34] LABS: Hematocrit 48.5 % (42.0-52.0); Hemoglobin 15.9 g/dL (14.1-18.0)
[2021-01-06 14:01] LABS: Blood Urea Nitrogen 13 mg/dl (9-20); Estimated Glomerular Filt Rate 89 ml/min (>60); GFR (African American) 108 ML/MIN (>60)
== END ==
PROVIDERS: Visit Provider Internal Medicine
DX: Z01.818 Encounter for other preprocedural examination (principal)
CPT/HCPCS: 36415; 82565; 84520; 85014; 85018

== ENCOUNTER → 2021-01-07 08:48 | Outpatient (CLI) | payer OTHER, SELFPAY ==
--- NOTE | 2021-01-07 08:51 | CA_ITS ---
APPROVED REPORT [employer] Worker: CT Laterality: Bilateral Study Quality: Good Indications: cad Risk Factors Hypertension: Hyperlipidemia Smoking VT last week 3 stents Doppler Spectral Velocity Analysis ECA (R) 96.30/12.20 cm/s ECA (L) 106.70/15.30 cm/s dICA (R) 77.80/35.30 cm/s dICA (L) 71.70/30.90 cm/s Odilia (R) 79.50/30.20 cm/s Odilia (L) 58.40/22.10 cm/s pICA (R) 63.20/25.20 cm/s pICA (L) 59.40/20.60 cm/s dCCA (R) 113.30/29.90 cm/s dCCA (L) 105.40/25.70 cm/s pCCA (R) 109.00/22.00 cm/s pCCA (L) 112.00/21.40 cm/s Vert (R) 44.60/18.50 cm/s Vert (L) 40.40/11.30 cm/s ICA/CCA 0.70 ICA/CCA 0.70 Findings Duplex evaluation demonstrates stenosis of the right proximal internal carotid artery <20%. Duplex evaluation demonstrates stenosis of the left proximal internal carotid artery <20%. Duplex evaluation demonstrates antegrade flow of the bilateral Vertebral Arteries. Thyroid cysts noted. Electronically signed by : Jeremy Leon MD 01/07/2021 15:58:48
== END ==
PROVIDERS: PCP Internal Medicine Adolescent Medicine; Visit Provider Internal Medicine Adolescent Medicine
DX: Z82.49 Family history of ischemic heart disease and other diseases of the circulatory system (principal)
CPT/HCPCS: 93880

== ENCOUNTER 2021-01-13 12:45 | Outpatient (RCR) | payer OTHER, SELFPAY | END 2021-04-23 11:17 | disposition home or self-care (01) | LOC: PT 12:45 | PROVIDERS: Visit Provider Internal Medicine | DX: Z95.5 Presence of coronary angioplasty implant and graft (principal); I25.10 Atherosclerotic heart disease of native coronary artery without angina pectoris; I25.2 Old myocardial infarction | CPT/HCPCS: 93798 ==

== ENCOUNTER → 2021-08-04 13:55 | Outpatient (CLI) | payer SELFPAY ==
[2021-08-04 15:21] LABS: Alanine Aminotransferase 75 U/L (12-78); Albumin Level 4.2 g/dl (3.5-5.0); Alkaline Phosphatase 53 U/L (38-126); Aspartate Amino Transferase 67 U/L (17-59); Bilirubin,Direct 0.3 mg/dl (0.0-0.4); Bilirubin,Total 0.3 mg/dl (0.2-1.3); Chol/HDL Ratio 2.6 (1-3.5); Cholesterol 121 mg/dl (140-200); HDL Cholesterol 46 mg/dl (40-60); Total Protein,Serum 6.7 g/dl (6.3-8.2); Triglycerides 84 mg/dl (30-150); VLDL Cholesterol 17 mg/dL (0-40)
[2021-08-04 15:32] LABS: Direct LDL Cholesterol 54.37 mg/dL (100-129)
== END ==
PROVIDERS: Visit Provider Urology
DX: I11.9 Hypertensive heart disease without heart failure (principal); E11.9 Type 2 diabetes mellitus without complications
CPT/HCPCS: 36415; 80061; 80076

== ENCOUNTER → 2022-07-27 12:41 | Outpatient (CLI) | payer BC, SELFPAY ==
--- NOTE | 2022-07-27 12:44 | CT_ITS ---
FINAL REPORT CLINICAL HISTORY: H/O NICOTINE DEPENDENCE 52-year-old smoker with 30 pack year smoking history. FINDINGS: Low-Dose Chest CT Axial images were obtained from the lung apex to the mid abdomen by computed tomography. Low-dose protocol was utilized. CTDI vol (mGy): 2.90 DLP (mGy-cm): 101.07 There is no axillary adenopathy. There is no hilar or mediastinal adenopathy. The heart is proper size. There is no pericardial or pleural effusion. Lung window images demonstrate no suspicious nodule or infiltrate. There is a calcified granuloma in the left lower lobe. Limited images of the upper abdomen demonstrate postoperative changes from cholecystectomy. IMPRESSION: No suspicious nodule or infiltrate is identified. Lung RADS category 1. Recommend 12 month follow-up low-dose chest CT. Reviewed, Interpreted and Dictated by Onofre García III, MD Transcribed by Delilah Guzman Authenticated and [facility]
== END ==
PROVIDERS: PCP Internal Medicine Adolescent Medicine; Visit Provider Internal Medicine Adolescent Medicine
DX: Z87.891 Personal history of nicotine dependence (principal); Z12.2 Encounter for screening for malignant neoplasm of respiratory organs
CPT/HCPCS: 71271

== ENCOUNTER 2022-10-21 10:19 | Day surgery (SDC) | payer BC, SELFPAY ==
[2022-10-14 12:18] VITALS: BMI 24.2
[2022-10-21] VITALS (7 sets, daily range): BP systolic 91–120; BP diastolic 60–78; PULSE 58–67; RESP 16–17; TEMP 36.2–36.3; O2SAT 90–99
--- NOTE | 2022-10-21 12:16 | EXP.GEN.HP ---
HPI HPI HPI: Patient is a 52-year-old male from [facility] referred by Dr. Clint Jules for upper endoscopy.? Patient does have a history of reflux.? He apparently had previously undergone upper endoscopy he states 10 or 15 years ago he believes in [facility] at which time he had his esophagus stretched .? Recently he has developed symptoms of burning substernal pain when eating with symptoms consistent with the dysphagia.? He has been unable to have some foods past such as hamburger and breads.? He has relief of his symptoms when he is standing.? He has had some excessive belching.? He is currently on Nexium but has not noticed any change.? Patient does have a previous history of [place] in December 2020 with stents.? He does smoke a pack of cigarettes per daily.? No significant alcohol. [facility] Disclaimer: The information contained in this section may have been updated after the patient was seen, as this information can be updated by other users. Medical History Gastroesophageal reflux disease History of COVID-19 History of diverticulitis History of heart attack History of left heart catheterization (LHC) Hyperlipidemia Hypertension Pneumonia Skin cancer Surgical History (Updated 10/21/22 @ 10:40 by Mali Sloan RN) History of cholecystectomy History of colon resection History of colonoscopy History of heart artery stent Family History Family history of cancer Family history of COPD (chronic obstructive pulmonary disease) Father Social History Smoking Status: Current every day smoker tobacco type: cigarettes packs per day: 1 alcohol intake: never substance use type: denies use current occupational status: employed Travel in the last 8 weeks: None household members: none housing: house 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 Home Medications and Allergies Home Medications Medication Instructions Recorded Confirmed Type nitroglycerin 0.4 mg sublingual 0.4 mg sublingual Q5-15M PRN Chest 01/06/21 10/14/22 History tablet Pain omeprazole 40 mg capsule,delayed 40 mg PO DAILY GERD 07/14/22 10/14/22 History release aspirin 81 mg tablet,delayed 81 mg PO DAILY heart health 10/14/22 10/14/22 History release atorvastatin 80 mg tablet 80 mg PO HS cholesterol 10/14/22 10/21/22 History lisinopril 5 mg tablet 5 mg PO DAILY High blood pressure 10/14/22 10/14/22 History metoprolol succinate 25 mg 25 mg PO DAILY htn 10/14/22 10/14/22 History tablet,extended release 24 hr New Prescriptions to Start Prescriptions: Allergies Allergy/AdvReac Type Severity Reaction Status Date / Time No Known Allergies Allergy Verified 10/21/22 10:44 Exam Data for Last 24 hours Vital signs and Labs for Last 24 Hours: Temp Pulse Resp BP Pulse Ox 97.3 F L 67 16 120/78 99 10/21/22 10:45 10/21/22 10:45 10/21/22 10:45 10/21/22 10:45 10/21/22 10:45 *Routine HEENT Exam Head: Present normocephalic Eye: Present PERRL ENT: Present mucous membranes moist *Routine Respiratory Exam Respiratory: Absent accessory muscle use *Routine Cardiovascular Exam Cardiovascular: Present RRR *Routine Abdominal Exam Abdominal: Present soft *Routine Rectal Exam Rectal:: deferred *Routine Genitalia Exam Genitalia:: deferred Assessment and Plan *Assessment and plan (1) Gastroesophageal reflux disease: Status: Chronic Qualifiers: Esophagitis presence: esophagitis presence not specified Qualified Code(s): K21.9 - Gastro-esophageal reflux disease without esophagitis Category: Medical Code(s): K21.9 - Gastro-esophageal reflux disease without esophagitis
--- NOTE | 2022-10-21 12:25 | EXP.ANES.CKL ---
[facility] Disclaimer: The information contained in this section may have been updated after the patient was seen, as this information can be updated by other users. Medical History Gastroesophageal reflux disease History of COVID-19 History of diverticulitis History of heart attack History of left heart catheterization (LHC) Hyperlipidemia Hypertension Pneumonia Skin cancer Surgical History (Updated 10/21/22 @ 10:40 by Mali Sloan RN) History of cholecystectomy History of colon resection History of colonoscopy History of heart artery stent Family History Father Family history of COPD (chronic obstructive pulmonary disease) Other Family history of cancer Social History Smoking Status: Current every day smoker tobacco type: cigarettes packs per day: 1 alcohol intake: never substance use type: denies use current occupational status: employed Travel in the last 8 weeks: None household members: none housing: house 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
--- NOTE | 2022-10-21 12:43 | HMH.SCOPE ---
Procedure: Date: 10/21/22 Patient Date of :: 1970 Procedure Performed:: Esophagogastroduodenoscopy with biopsies and dilatation to 20 mm Indications:: Patient is a 52-year-old male from [facility] referred by Dr. Clint Jules for upper endoscopy.? Patient does have a history of reflux.? He apparently had previously undergone upper endoscopy he states 10 or 15 years ago he believes in [facility] at which time he had his esophagus stretched .? Recently he has developed symptoms of burning substernal pain when eating with symptoms consistent with the dysphagia.? He has been unable to have some foods past such as hamburger and breads.? He states that he has some dysphagia type symptoms with lettuce. He has relief of his symptoms when he is standing.? He has had some excessive belching.? He was initially on Nexium but has not noticed any change.? Patient does have a previous history of [place] in December 2020 at the age of 50 with stents and history of ventricular fibrillation.? He does smoke a pack of cigarettes per daily.? No significant alcohol. He has been started on omeprazole and his symptoms have improved. In the preoperative area patient does state that he may need a colonoscopy at some point. He had a previous colon resection for diverticulitis at around the age of 39. He describes some pressure and fullness in his abdomen with alteration of his bowel habits. Performing Provider:: Onofre Redmond MD Referring Provider:: Clint Jules MD Sedation:: MAC sedation Procedure:: Patient was taken to endoscopy procedure room. He was positioned in lateral decubitus position. Adequate intravenous sedation was achieved with anesthesia titration of propofol. Olympus endoscope was inserted via the oropharynx. There is some moderate tortuosity of the esophagus consistent with some potentially esophageal dysmotility. At the gastroesophageal junction there was a small Schatzki's ring. Stomach was cannulated and insufflated. Retroflexion revealed moderate sliding hiatal hernia. There is some minor diffuse nonerosive gastropathy. Biopsy was obtained for CLOtest for H. pylori and biopsy was obtained for histopathologic analysis. Pylorus was traversed. Duodenum appeared unremarkable. Endoscope was withdrawn to the distal esophagus and a couple biopsies were obtained at the gastroesophageal junction. Distal esophagus was dilated sequentially from 18 to 19 to 20 mm luminal diameter using the elation balloon dilator. A couple biopsies were obtained in the distal esophagus to evaluate for microscopic esophagitis. Endoscope was withdrawn. Findings:: Potential esophageal dysmotility Gastroesophageal junction at 35 cm Beginnings of Schatzki's ring dilated to 20 mm Small to moderate sliding hiatal hernia Diffuse gastropathy Recommendations:: Plan to follow-up on H. pylori status and biopsies and manage appropriately. Would likely benefit from smoking cessation. Complications:: None immediate Estimated blood obtained (mL): 1
== END 2022-10-21 13:25 | disposition home or self-care (01) ==
PROVIDERS: PCP Internal Medicine Adolescent Medicine; Visit Provider Surgery
PROC: 0DJ08ZZ Inspection of Upper Intestinal Tract, Via Natural or Artificial Opening Endoscopic (ICD-10-PCS; CPT 43235; principal; 2022-10-21 11:30)
DX: K21.9 Gastro-esophageal reflux disease without esophagitis (principal); F17.210 Nicotine dependence, cigarettes, uncomplicated; Z79.899 Other long term (current) drug therapy
CPT/HCPCS: 43239; 43249; 87339; 88305; C1726

== ENCOUNTER → 2023-03-10 13:39 | Outpatient (CLI) | payer BC, SELFPAY | LOC: RT 13:39 | PROVIDERS: PCP Internal Medicine Adolescent Medicine; Visit Provider Nurse Practitioner Family | DX: R06.00 Dyspnea, unspecified (principal); I25.10 Atherosclerotic heart disease of native coronary artery without angina pectoris; I42.9 Cardiomyopathy, unspecified; E78.5 Hyperlipidemia, unspecified; Z72.0 Tobacco use; Z95.5 Presence of coronary angioplasty implant and graft | CPT/HCPCS: 93306 ==

== ENCOUNTER → 2023-03-27 06:43 | Outpatient (CLI) | payer BC, SELFPAY ==
--- NOTE | 2023-03-27 | CA_ITS ---
APPROVED REPORT Exam: Pharmacologic Technologist: Carmen Infante, Ht: 5 ft 6 in Wt: 159 lbs BSA: 1.81 m2 HR: 64 bpm BP: 122/80 mmHg Rhythm: SB, OLD INFERIOR FL Medical History Medical History: HTN, Hyperlipidemia Medications: Lisinopril,,,,, Aspirin,,,,, Pantoprazole,,,,, Metoprolol Succinate ER,,,,, NitrogGLYCERIN,,,,, ArtORVASTATIN,,,,, Allergies: No known drug allergies Cardiac Risk Factors: HTN, Hyperlipidemia, FHX of CAD Stress Test Details Test: LEXISCAN HR Resting HR: 64 bpm Max Heart Rate (APMHR): 166 bpm Max HR Achieved: 107 bpm Target HR (85% APMHR): 141 bpm % of APMHR: 64 Recovery HR: 71 bpm BP Resting BP: 122/80 mmHg Max BP: 124/86 mmHg Recovery BP: 112.0/75.0 mmHg ECG Resting ECG: SB, OLD INFERIOR FL Stress ECG: No change Arrhythmia: None Recovery ECG: No change Recovery Arrhythmia: None Clinical Exercise duration: 04:00 min Highest Stage Achieved: Exercise capacity: 1.0 METs Stress ECG Conclusion PT HAD DYSPNEA AT BASELINE, ECG DEMONSTRATED NSR WITH POSSIBLE OLD INFERIOR FL. THERE WAS NO SIGNIFICANT ST CHANGE FOLLOWING [facility] ADMINISTRATION. PATIENT HAD BEEN SWITCHED FROM EXERCISE TO PHARMACOLOGIC STRESS TESTING DUE TO DIZZINESS, SOA, AND LEG FATIGUE UNREMARKABLE LEXISCAN STRESS TEST. MYOVIEW IMAGES ARE REPORTED SEPARATELY. Test Summary REST 01:06 . . 64 . 122/ 80 . . Stage 1 . . . . . . . Myoview Injected Stage 1 01:00 . . 105 . . . . Stage 2 01:00 . . 93 . 123/ 84 . . Stage 3 01:00 . . 89 . 108/ 67 . . Stage 4 01:00 . . 79 . 122/ 77 . Stop exercise at 04:00 RECOVERY 01:00 . . 81 . . . . RECOVERY 02:00 . . 76 . 124/ 86 . . RECOVERY 03:00 . . 72 . 124/ 86 . . RECOVERY 03:26 . . 72 . 112/ 75 . . Electronically signed by : Chioam Ramirez, 03/28/2023 01:56:04
--- NOTE | 2023-03-27 07:23 | NM_ITS ---
APPROVED REPORT Exam: Nuclear Stress Test Indication: CAD, 3 STENTS, H/O DC, HTN, HYPERLIPIDEMIA, TOB USE, FM HX, SOB, FATIGUE Patient Location: Outpatient Stress Tech: Carmen Infante [place] Tech:JANAY Ashraf RT (R)(N)(M) Ht: 5 ft 6 in Wt: 155 lbs HR: 64 bpm BP: 122/80 mmHg BSA: 1.79 m2 TID: 1.07 BMI: 25.0 History: CAD, 3 STENTS, H/O DC, HTN, HYPERLIPIDEMIA, TOB USE, FM HX, SOB, FATIGUE Procedure: Patient received 0.4 mg of intravenous Lexiscan, resting heart rate 64 bpm, resting blood pressure 122/80 mmHg, with Lexiscan maximum heart rate achieved was 99 bpm which is % of the maximum predicted heart rate and blood pressure was 123/84 mmHg. With Lexiscan, patient denied any complaint of chest pain. Cardiac Stress and Resting SPECT Images: Cardiac Stress and Resting SPECT images were obtained using technetium 99m Myoview 32.0 mCi stress and 10.37 mCi at rest. Resting and stress imaging in both supine and prone positions demonstrate large sized, severe, fixed perfusion defect in the entire inferior and inferior lateral wall from the base extending distally towards the inferoapical region. There is also a medium sized, mild, partially reversible perfusion defect in the basal to mid anterior LV wall. Gated imaging demonstrates mild reduction in global LV systolic function. There is moderate to severe hypokinesis in the inferior and inferior lateral LV wall. LVEF is calculated at 46%. Conclusion: Large sized, severe, fixed perfusion defect in the entire inferior and inferior lateral wall from the base extending distally towards the inferoapical region. These findings are suggestive of prior infarct. There is also a medum sized, mild, partially reversible perfusion defect in the basal to mid anterior LV wall. These findings are suggestive of partial reversible ischemia. Gated imaging demonstrates mild reduction in global LV systolic function. There is moderate to severe hypokinesis in the inferior and inferior lateral LV wall. LVEF is calculated at 46%. Electronically signed by : Chioma Ramirez, 03/28/2023 02:02:00
== END ==
PROVIDERS: PCP Internal Medicine Adolescent Medicine; Visit Provider Physician Assistant
DX: R06.00 Dyspnea, unspecified (principal); I25.10 Atherosclerotic heart disease of native coronary artery without angina pectoris; I42.8 Other cardiomyopathies; E78.5 Hyperlipidemia, unspecified; Z72.0 Tobacco use; Z95.5 Presence of coronary angioplasty implant and graft
CPT/HCPCS: 78452; 93017; A9502; J2785

== ENCOUNTER 2023-04-20 07:56 | Day surgery (SDC) | payer BC, SELFPAY ==
[2023-04-20] VITALS (11 sets, daily range): BP systolic 90–128; BP diastolic 48–70; PULSE 46–69; RESP 16–18; O2SAT 93–98; BMI 24.8
--- NOTE | 2023-04-20 07:03 | IR_ITS ---
APPROVED REPORT PROCEDURES Left heart catheterization Left ventriculogram Selective coronary angiogram INDICATION Known coronary artery disease, Angina pectoris, History of coronary artery stenting, Abnormal Myoview, Informed consent was obtained prior to the procedure. COMPLICATIONS None Estimated Blood Loss: Less than 10 ml TECHNIQUE One percent lidocaine used to anesthetize the right anterior aspect of the wrist. The right radial artery was accessed via the Seldinger technique. A 6 [place] sheath was placed in the right radial artery. 150 mg magnesium sulfate, 800 mcg of nitroglycerin, 1mg Lidocaine and 5000 U Heparin were given through the arterial sheath. The papa catheter was also used to perform left heart catheterization, left ventriculogram and selective coronary angiogram. At the end of the procedure the sheath was removed good hemostasis was achieved using Traclet band, patient was transferred to the postop holding area in stable condition. ANGIOGRAPHIC RESULTS The left main artery Normal The left anterior descending artery Is proximally normal and has a stent in the mid segment which is widely patent free of in-stent restenosis with excellent proximal distal transitioning. JESUS ALBERTO II flow was present down the LAD The circumflex artery Nondominant and has proximal and mid vessel 20 to 30% stenoses The right coronary artery Is a dominant vessel and has stents in the proximal to mid segments are widely patent free of in-stent restenosis with excellent proximal distal transitioning. There are additional diffuse 30 to 40% stenoses in the distal right coronary artery as well as mid large posterior lateral ventricular branch The CARY ventriculogram reveals Slight left ventricular dilatation with anterior wall hypokinesis estimate ejection fraction 45% The left ventricular end-diastolic pressure 20 to 25 mmHg IMPRESSION Coronary disease as described above Reduced ejection fraction with regional wall motion abnormality Elevated LVEDP Slow flow down the LAD consistent with endothelial dysfunction likely secondary to ongoing tobacco usage PLAN 1. Lasix 20 mg daily plus spironolactone 25 mg daily 2. Start Entresto as outpatient 3. Continue risk factor modification 4. Avoidance of tobacco products which is the likely etiology for patient's angina pectoris and endothelial dysfunction 5. LDL less than 55 to be achieved with high intensity statin Electronically signed by : Javon Brown MD 04/20/2023 14:37:35
[2023-04-20 08:51] LABS: Basophils % 0.6 % (0.1-2.0); Eosinophils # 0.2 K/mm3 (0.0-0.4); Eosinophils % 2.8 % (0.1-12.0); Hematocrit 50.1 % (42.0-52.0); Lymphocytes # 1.6 K/mm3 (0.7-4.5); Lymphocytes % 25.6 % (10-50); Mean Corpuscular Hemoglobin 31.4 pg (27.0-31.2); Mean Corpuscular Volume 98.4 fl (80-94); Mean Platelet Volume 7.8 fl (7.4-10.4); Monocytes # 0.4 K/mm3 (0.1-1.0); Neutrophils % 65.1 % (37.0-80.0); Platelet Count 185 K/mm3 (142-424); Red Cell Distribution Width 13.6 % (11.5-17.5); White Blood Count 6.2 K/mm3 (4.8-10.8)
[2023-04-20 08:56] LABS: Chloride 105 mmol/L (98-107); Potassium 4.2 mmoL/L (3.5-5.1); Sodium 142 mmol/L (136-145)
[2023-04-20 08:59] LABS: Anion Gap 9.2 mEq/L (5-15); Blood Urea Nitrogen 14 mg/dl (9-20); Calcium 8.6 mg/dl (8.4-10.2); Carbon Dioxide 32 mmol/L (22.0-30.0); Creatinine Clearance Estimated 93 mL/min (50-200); Estimated Glomerular Filt Rate 88 ml/min (>60); GFR (African American) 106 ML/MIN (>60); Glucose 100 mg/dl (74-100)
--- NOTE | 2023-04-20 13:00 | SUR.PHASEII ---
Pt was discharge and ready to leave, dr rg called and said not to have patient leave cecilia he would like to review his medications, pt and ride sitting in room at this time waiting
== END 2023-04-20 13:26 | disposition home or self-care (01) ==
PROVIDERS: PCP Internal Medicine Adolescent Medicine; Visit Provider Internal Medicine
DX: I25.119 Atherosclerotic heart disease of native coronary artery with unspecified angina pectoris (principal); Z95.5 Presence of coronary angioplasty implant and graft; K21.9 Gastro-esophageal reflux disease without esophagitis; K44.9 Diaphragmatic hernia without obstruction or gangrene; I25.2 Old myocardial infarction; E78.5 Hyperlipidemia, unspecified; I10 Essential (primary) hypertension; Z85.828 Personal history of other malignant neoplasm of skin
CPT/HCPCS: 80048; 85025; 93458; 99152; C1725; C1769; J1644; Q9967

== ENCOUNTER 2024-01-30 09:42 | Emergency (ER) | payer BC, SELFPAY ==
[2024-01-30] VITALS (8 sets, daily range): BP systolic 109–134; BP diastolic 51–83; PULSE 61–71; RESP 16–18; TEMP 36.4–36.7; O2SAT 96–99; BMI 27.1; BMI 27.0
--- NOTE | 2024-01-30 10:12 | EXP.UTC ---
Discharge Plan Disposition Patient Disposition: Home, Self-Care Condition: Fair Prescriptions Prescriptions: No Action nitroglycerin 0.4 mg tablet, sublingual 0.4 mg SUBLINGUAL Q5-15M PRN (Reason: Chest Pain) Patient Comments: ONE TABLET UNDER TONGUE NEEDED FOR CHEST PAIN bupropion HCl 150 mg tablet extended release 24 hr 150 mg PO DAILY metoprolol succinate 25 mg tablet extended release 24 hr 12.5 mg PO DAILY furosemide [Lasix] 20 mg tablet 20 mg PO DAILY Qty: 30 11RF spironolactone 25 mg tablet 25 mg PO DAILY Qty: 30 11RF Entresto 24-26 mg tablet 1 tab PO BID Qty: 90 1RF isosorbide mononitrate 30 mg tablet extended release 24 hr 30 mg PO DAILY Qty: 30 5RF atorvastatin 80 mg tablet 80 mg PO HS aspirin 81 MG tablet,delayed release (DR/EC) 81 mg PO DAILY pantoprazole [Protonix] 40 mg tablet,delayed release (DR/EC) 40 mg PO DAILY Referrals Follow up/Referrals: Clint Jules MD [Primary Care Provider] - See instructions Activity Restrictions/Add. Instructions Additional Instructions/Restrictions: Call your family doctor to establish care for this visit to the emergency department and schedule follow-up within 48 hours to ensure improvement. Talk to them about your chronic abdominal pains and how to further manage. Clinical Impressions Clinical Impression: Abdominal pain Stand Alone Forms Stand Alone Forms: Work/School Release Instructions Patient Instructions: DI for Acute Abdominal Pain Discharge ED Provider: Jc Palmer [facility] General Chief complaint: Abdominal Pain Stated complaint: lower abd pain Mode of Arrival: Ambulatory Source of Information: Patient Limitations: No Limitations Time Seen by Provider: 01/30/24 10:11 Description of Symptoms (Recalled from Triage Doc. by RN): Pt's symptoms are upper to mid abdominal pain, and radiates to there back. He describes the pain as cramping. He states that it starts after he lifts something heavy. He has hx of diverticulitis. HEENT Symptoms (Recalled from RN notes): Yes Resp Symptoms (Recalled from RN notes): No Skin Symptoms (Recalled from RN notes): No MS Symptoms (Recalled from RN notes): No Functional Status (Recalled from RN notes): n/a History of Present Illness Provider Complaint: He states that for the past several days he has been having lower abdominal pain and cramping intermittently. This morning he was at [employer] lifting something heavy when his pain and cramping increased in severity. He states the worst of the pain is located in his left lower quadrant. He has also had diarrhea and nausea. He states that he has a history of diverticulitis. He is unsure if his current symptoms feel like his normal symptoms when he has a flare up of that. Related Data Home Medications Medication Instructions Recorded Confirmed nitroglycerin 0.4 mg sublingual 0.4 mg sublingual Q5-15M PRN Chest 01/06/21 01/30/24 tablet Pain aspirin 81 mg tablet,delayed 81 mg PO DAILY heart health 10/14/22 01/30/24 release atorvastatin 80 mg tablet 80 mg PO HS cholesterol 10/14/22 01/30/24 bupropion HCl 150 mg 24 hr tablet, 150 mg PO DAILY . 03/31/23 01/30/24 extended release pantoprazole 40 mg tablet,delayed 40 mg PO DAILY Acid Reflux 04/20/23 01/30/24 release (Protonix) metoprolol succinate 25 mg 12.5 mg PO DAILY htn 05/05/23 01/30/24 tablet,extended release 24 hr Previous Rx's Medication Instructions Recorded furosemide 20 mg tablet (Lasix) 20 mg PO DAILY #30 tabs 08/28/23 spironolactone 25 mg tablet 25 mg PO DAILY #30 tabs 09/01/23 sacubitril 24 mg-valsartan 26 mg 1 tab PO BID #90 tabs 09/20/23 tablet (Entresto) isosorbide mononitrate 30 mg 30 mg PO DAILY #30 tabs 11/23/23 tablet,extended release 24 hr Allergies Allergy/AdvReac Type Severity Reaction Status Date / Time No Known Allergies Allergy Verified 01/30/24 10:08 Worker's Comp Is this a Worker's Comp case?: No [facility] Disclaimer: The information contained in this section may have been updated after the patient was seen, as this information can be updated by other users. Medical History (Updated 01/30/24 @ 10:49 by Albert Bernal APRN) LV dysfunction Abnormal result of cardiovascular function study Pneumonia History of COVID-19 History of diverticulitis History of heart attack Hyperlipidemia Hypertension History of left heart catheterization (LHC) Skin cancer Gastroesophageal reflux disease Surgical History History of esophagogastroduodenoscopy (EGD) History of heart artery stent History of colon resection History of cholecystectomy History of colonoscopy Family History Father Family history of COPD (chronic obstructive pulmonary disease) Other Family history of cancer Social History Smoking Status: Current every day smoker tobacco type: cigarettes packs per day: 1 years smoked: 30 alcohol intake: never substance use type: denies use current occupational status: employed Travel in the last 8 weeks: None household members: none housing: house current occupation: [employer] ROS Obtained: Yes All systems reviewed & no additional complaints except as documented Constitutional Constitutional: Denies chills, Denies fever(s) and Reports poor appetite ENT Ears, Nose, Mouth, and Throat: Denies dizziness and Denies sore throat Cardiovascular Cardiovascular: Denies dyspnea Respiratory Respiratory: Denies chest congestion, Denies cough and Denies dyspnea Gastrointestinal Gastrointestingal: Reports as per HPI, abdominal pain, cramping, diarrhea and nausea; Denies hematochezia or vomiting Genitourinary Male Genitourinary: Denies difficulty urinating, Denies testicular pain, Denies urinary frequency, Denies urinary hesitancy and Denies urinary incontinence Musculoskeletal Musculoskeletal: Denies arthralgias and Denies back pain Integumentary/Breasts Skin/Breast: Denies rash Neurologic Neurologic: Denies dizziness Physical Exam General General appearance: alert and in no apparent distress Head Head exam: atraumatic, normocephalic and normal inspection Eye Eye exam: Present normal appearance, PERRL and EOMI ENT ENT exam: Present normal exam, normal oropharynx, mucous membranes moist, TM's normal bilaterally and normal external ear exam Neck Neck exam: Present normal inspection, full ROM and trachea midline; Absent meningismus or lymphadenopathy Chest Chest inspection: Present normal inspection and symmetric chest wall rise; Absent tenderness Respiratory Respiratory exam: Present normal lung sounds bilaterally; Absent respiratory distress Cardiovascular Cardiovascular exam: Present regular rate and normal rhythm; Absent JVD Abdominal Exam Abdominal exam: Present soft, tenderness and hyperactive bowel sounds; Absent distention, guarding, rebound or rigidity Abdominal tenderness: Present LLQ and moderate Extremities Exam Extremities exam: Present normal inspection, full ROM and normal capillary refill; Absent calf tenderness Back Exam Back exam: Present normal inspection; Absent tenderness Neurological Exam Neurological exam: Present alert and oriented X3 Psychiatric Psychiatric exam: Present normal affect and normal mood Skin Skin exam: Present warm, dry, intact and normal color Lymphatic Lymphatic Findings: no adenopathy Medical Decision Making Medical Records Medical records reviewed: No I reviewed the patient's medical records. [place] Inquiry Pt receiving controlled substance: No Vital Signs: 01/30/24 09:55 Temperature 97.6 F Temperature Source Oral Pulse Rate [Right Radial] 61 Respiratory Rate 18 Blood Pressure [Right Arm] 116/75 Blood Pressure Mean [Right Arm] 88 Blood Pressure Source [Right Arm] Automatic Cuff Blood Pressure Position [Right Arm] Sitting 02 Sat by Pulse Oximetry 99 Oxygen Delivery Method Room Air Lab Data Lab results reviewed: Yes I reviewed the patient's lab results. 01/30/24 10:54 01/30/24 10:54 Medical Decision Narrative: He was transferred to the ER due to his complaints of abdominal pain.
[2024-01-30 10:23] LABS: Apearance,Urine Clear (Clear); Bilirubin,Urine Negative (Negative); Blood, Urine Negative (Negative); Color,Urine Dark Yellow (Yellow); Glucose,Urine (UA) Negative (Negative); Ketones,Urine Negative (Negative); Protein,Urine Negative (Negative); UTC Leukocyte Esterase,Urine Negative (Negative); UTC Nitrate,Urine Negative (Negative); Urobilinogen,Urine 0.2 EU/dl (0.2)
[2024-01-30 11:05] LABS: Basophils # 0.1 K/mm3 (0-0.2); Eosinophils # 0.1 K/mm3 (0.0-0.4); Eosinophils % 1.3 % (0.1-12.0); Hematocrit 53.5 % (42.0-52.0); Hemoglobin 17.6 g/dL (14.1-18.0); Lymphocytes # 1.8 K/mm3 (0.7-4.5); Lymphocytes % 20.3 % (10-50); Mean Corpuscular HGB Conc 32.9 g/dL (31.8-35.4); Mean Corpuscular Hemoglobin 32.8 pg (27.0-31.2); Mean Corpuscular Volume 99.7 fl (80-94); Monocytes # 0.4 K/mm3 (0.1-1.0); Monocytes % 4.8 % (1.7-9.3); Neutrophils # 6.4 K/mm3 (1.8-7.8); Neutrophils % 72.7 % (37.0-80.0); Platelet Count 221 K/mm3 (142-424); Red Blood Count 5.37 M/mm3 (4.60-6.20); Red Cell Distribution Width 13.6 % (11.5-17.5); White Blood Count 8.7 K/mm3 (4.8-10.8)
--- NOTE | 2024-01-30 11:05 | PC.NURSE ---
Pt arrived to ED room 9 from [facility]
[2024-01-30 11:17] LABS: Chloride 106 mmol/L (98-107); Potassium 4.4 mmoL/L (3.5-5.1); Sodium 142 mmol/L (136-145)
[2024-01-30 11:19] LABS: Amylase 72 U/L (30-110)
[2024-01-30 11:20] LABS: Alanine Aminotransferase 123 U/L (12-78); Albumin Level 4.5 g/dl (3.5-5.0); Albumin/Globulin Ratio 1.6 (1.1-1.8); Alkaline Phosphatase 88 U/L (38-126); Anion Gap 10.4 mEq/L (5-15); Aspartate Amino Transferase 135 U/L (17-59); Bilirubin,Total 0.9 mg/dl (0.2-1.3); Blood Urea Nitrogen 13 mg/dl (9-20); Calcium 9.6 mg/dl (8.4-10.2); Carbon Dioxide 30 mmol/L (22.0-30.0); Creatinine Clearance Estimated 100 mL/min (50-200); Estimated Glomerular Filt Rate 88 ml/min (>60); GFR (African American) 106 ML/MIN (>60); Globulin 2.9 g/dL (1.3-3.2); Glucose 121 mg/dl (74-100); Lipase 65 U/L (23-300); Total Protein,Serum 7.4 g/dl (6.3-8.2)
--- NOTE | 2024-01-30 11:21 | CT_ITS ---
FINAL REPORT TECHNIQUE: After the administration of oral and intravenous contrast, axial images were obtained through the abdomen and pelvis by computed tomography. The study was performed with techniques to keep radiation dose as low as reasonably achievable, (ALARA). Individual dose reduction techniques using automated exposure control or adjustment of mA and/or kV according to the patient's size were employed. CLINICAL HISTORY: exertional abdominal pain and fullness, epigastric COMPARISON: 12/20/2016 FINDINGS: Abdomen: Minimal scarring is present in the lung bases. There is a subcentimeter low-attenuation focus noted in the left lobe of the liver, likely a benign cyst. The gallbladder has been surgically resected, and there is intra and extrahepatic ductal dilatation noted, likely postoperative change. The spleen, pancreas, adrenals and kidneys appear unremarkable. The aorta is normal in caliber. There is no free fluid or adenopathy. Pelvis: The appendix is not identified. The urinary bladder is unremarkable. There are postoperative changes with a sigmoid colon anastomosis. There is a small amount of fluid present in the small bowel. IMPRESSION: No acute intra-abdominal process. Postoperative changes with a sigmoid colon anastomosis. Intra and extrahepatic ductal dilatation post cholecystectomy, likely postoperative change. Subcentimeter low-attenuation focus in the liver, likely a benign cyst. Reviewed, Interpreted and Dictated by Yayo Friend MD Transcribed by Alejandra Hansen Authenticated and [facility]
--- NOTE | 2024-01-30 11:27 | ED_ITS ---
Discharge Plan Disposition Patient Disposition: Home, Self-Care Condition: Fair Prescriptions Prescriptions: No Action nitroglycerin 0.4 mg tablet, sublingual 0.4 mg SUBLINGUAL Q5-15M PRN (Reason: Chest Pain) Patient Comments: ONE TABLET UNDER TONGUE NEEDED FOR CHEST PAIN bupropion HCl 150 mg tablet extended release 24 hr 150 mg PO DAILY metoprolol succinate 25 mg tablet extended release 24 hr 12.5 mg PO DAILY furosemide [Lasix] 20 mg tablet 20 mg PO DAILY Qty: 30 11RF spironolactone 25 mg tablet 25 mg PO DAILY Qty: 30 11RF Entresto 24-26 mg tablet 1 tab PO BID Qty: 90 1RF isosorbide mononitrate 30 mg tablet extended release 24 hr 30 mg PO DAILY Qty: 30 5RF atorvastatin 80 mg tablet 80 mg PO HS aspirin 81 MG tablet,delayed release (DR/EC) 81 mg PO DAILY pantoprazole [Protonix] 40 mg tablet,delayed release (DR/EC) 40 mg PO DAILY Referrals Follow up/Referrals: Clint Jules MD [Primary Care Provider] - See instructions Activity Restrictions/Add. Instructions Additional Instructions/Restrictions: Call your family doctor to establish care for this visit to the emergency department and schedule follow-up within 48 hours to ensure improvement. Talk to them about your chronic abdominal pains and how to further manage. Clinical Impressions Clinical Impression: Abdominal pain Instructions Patient Instructions: DI for Acute Abdominal Pain Discharge ED Provider: Jc Palmer General Adult HPI General Chief complaint: Abdominal Pain Stated complaint: lower abd pain Time Seen by Provider: 01/30/24 10:11 Mode of Arrival: Ambulatory Source of Information: Patient Limitations: No Limitations Description of Symptoms (Recalled from ER Triage Doc. by RN): Pt's symptoms are upper to mid abdominal pain, and radiates to there back. He describes the pain as cramping. He states that it starts after he lifts something heavy. He has hx of diverticulitis. History of Present Illness HPI narrative: 54-year-old male history of hypertension, hyperlipidemia, CAD status post stenting, cholecystectomy, diverticulitis status post partial colectomy presenting with abdominal pain. Patient states abdominal pain is epigastric, exertional, made worse with heavy lifting. Moderate, does not radiate. States that it is not associated with shortness of breath, vomiting, diarrhea, constipation. Patient states that the pains come and go, nothing in particular makes them better, other than rest. Nausea, but no other associated symptoms. No history of hernia. Last bowel movement yesterday and was diarrhea, nonbloody. Still passing gas. Please note that above description of symptoms, in this electronic medical record under categorization of recalled from ER triage doctor by RN are reflective of an initial nursing assessment, however, is not reflective of my full history and physical exam that was personally taken and clarified. Consequentially, this preceding description of symptoms, which may include the patient's categorized chief complaint in the EMR, do not reflect my personal clinical impression, and the ultimate description of history of present illness and patient stated complaints should be deferred to this section of the note. Unless stated otherwise or congruent with this section of the note, additional signs, symptoms, or incongruence should be interpreted as inaccurate with my clinical impression. Related Data Home Medications Medication Instructions Recorded Confirmed nitroglycerin 0.4 mg sublingual 0.4 mg sublingual Q5-15M PRN Chest 01/06/21 01/30/24 tablet Pain aspirin 81 mg tablet,delayed 81 mg PO DAILY heart health 10/14/22 01/30/24 release atorvastatin 80 mg tablet 80 mg PO HS cholesterol 10/14/22 01/30/24 bupropion HCl 150 mg 24 hr tablet, 150 mg PO DAILY . 03/31/23 01/30/24 extended release pantoprazole 40 mg tablet,delayed 40 mg PO DAILY Acid Reflux 04/20/23 01/30/24 release (Protonix) metoprolol succinate 25 mg 12.5 mg PO DAILY htn 05/05/23 01/30/24 tablet,extended release 24 hr Previous Rx's Medication Instructions Recorded furosemide 20 mg tablet (Lasix) 20 mg PO DAILY #30 tabs 08/28/23 spironolactone 25 mg tablet 25 mg PO DAILY #30 tabs 09/01/23 sacubitril 24 mg-valsartan 26 mg 1 tab PO BID #90 tabs 09/20/23 tablet (Entresto) isosorbide mononitrate 30 mg 30 mg PO DAILY #30 tabs 11/23/23 tablet,extended release 24 hr Allergies Allergy/AdvReac Type Severity Reaction Status Date / Time No Known Allergies Allergy Verified 01/30/24 10:08 [facility] Disclaimer: The information contained in this section may have been updated after the patient was seen, as this information can be updated by other users. Medical History (Updated 01/30/24 @ 10:49 by Albert Bernal APRN) LV dysfunction Abnormal result of cardiovascular function study Pneumonia History of COVID-19 History of diverticulitis History of heart attack Hyperlipidemia Hypertension History of left heart catheterization (LHC) Skin cancer Gastroesophageal reflux disease Surgical History History of esophagogastroduodenoscopy (EGD) History of heart artery stent History of colon resection History of cholecystectomy History of colonoscopy Family History Father Family history of COPD (chronic obstructive pulmonary disease) Other Family history of cancer Social History Smoking Status: Current every day smoker tobacco type: cigarettes packs per day: 1 years smoked: 30 alcohol intake: never substance use type: denies use current occupational status: employed Travel in the last 8 weeks: None household members: none housing: house current occupation: [employer] ROS Obtained: Yes All systems reviewed & no additional complaints except as documented Physical Exam General General appearance: alert and in no apparent distress Head Head exam: atraumatic and normocephalic Eye Eye exam: Present normal appearance, PERRL and EOMI ENT ENT exam: Present mucous membranes moist Neck Neck exam: Present normal inspection, full ROM and trachea midline Respiratory Respiratory exam: Present normal lung sounds bilaterally; Absent respiratory distress, wheezes, stridor, accessory muscle use or prolonged expiratory phase Cardiovascular Cardiovascular exam: Present normal rhythm Abdominal Exam Abdominal exam: Present soft; Absent distention, tenderness, guarding, rebound or rigidity Extremities Exam Extremities exam: Absent edema Neurological Exam Neurological exam: Present alert, oriented X3, CN II-XII intact and normal gait; Absent motor sensory deficit Skin Skin exam: Present warm and dry; Absent diaphoresis or erythema Medical Decision Making Medical Records Medical records reviewed: Yes I reviewed the patient's medical records. Mckay Inquiry Pt receiving controlled substance: No Mckay was queried for this patient: No Vital Signs: 01/30/24 09:55 01/30/24 11:08 01/30/24 11:30 Temperature 97.6 F 97.6 F Temperature Source Oral Oral Pulse Rate 69 Pulse Rate [Right Radial] 61 71 Respiratory Rate 18 18 Blood Pressure 117/83 Blood Pressure [Right Arm] 116/75 134/80 Blood Pressure Mean Blood Pressure Mean [Right Arm] 88 98 Blood Pressure Source [Right Arm] Automatic Cuff Automatic Cuff Blood Pressure Position [Right Arm] Sitting Sitting 02 Sat by Pulse Oximetry 99 99 96 Oxygen Delivery Method Room Air Room Air Room Air 01/30/24 12:00 01/30/24 12:30 01/30/24 13:00 Temperature Temperature Source Pulse Rate 65 68 67 Pulse Rate [Right Radial] Respiratory Rate Blood Pressure 123/80 109/51 L 112/75 Blood Pressure [Right Arm] Blood Pressure Mean 95 Blood Pressure Mean [Right Arm] Blood Pressure Source [Right Arm] Blood Pressure Position [Right Arm] 02 Sat by Pulse Oximetry 98 97 98 Oxygen Delivery Method Room Air Room Air Lab Data Lab Results 01/30/24 10:19: Urine Color Dark yellow, Urine Appearance Clear, Urine pH 6.0, Ur Specific [place] 1.030, Urine Protein Negative, Urine Glucose (UA) Negative, Urine Ketones Negative, Urine Blood Negative, Urine Nitrate Negative, Urine Bilirubin Negative, Urine Urobilinogen 0.2, Ur Leukocyte Esterase Negative 01/30/24 10:54: WBC 8.7, RBC 5.37, Hgb 17.6, Hct 53.5 H, MCV 99.7 H, MCH 32.8 H, MCHC 32.9, RDW 13.6, Plt Count 221, MPV 8.0, Neut % (Auto) 72.7, Lymph % (Auto) 20.3, [place] % (Auto) 4.8, Eos % (Auto) 1.3, Baso % (Auto) 1.0, Neut # (Auto) 6.4, Lymph # (Auto) 1.8, [place] # (Auto) 0.4, Eos # (Auto) 0.1, Baso # (Auto) 0.1, Sodium 142, Potassium 4.4, Chloride 106, Carbon Dioxide 30, Anion Gap 10.4, BUN 13, Creatinine 0.90, Estimated Creat Clear 100, Estimated GFR 88, Est GFR ( Amer) 106, Glucose 121 H, Calcium 9.6, Total Bilirubin 0.9, AST 135 H, ALT 123 H, Alkaline Phosphatase 88, Troponin I < 0.01, Total Protein 7.4, Albumin 4.5, Globulin 2.9, Albumin/Globulin Ratio 1.6, Amylase 72, Lipase 65 01/30/24 11:12: Urine Color Yellow, Urine Appearance Clear, Urine pH 5.5, Ur Specific [place] >= 1.030, Urine Protein Negative, Urine Glucose (UA) Negative, Urine Ketones Negative, Urine Blood Negative, Urine Nitrate Negative, Urine Bilirubin Negative, Urine Urobilinogen 0.2, Ur Leukocyte Esterase Negative, Urine RBC None, Urine WBC Occasional, Ur Squamous Epith Cells Occasional, Urine Bacteria Trace 01/30/24 10:54 01/30/24 10:54 Orders (Tests/Meds): ED MEDICATIONS Generic Name Dose Route Start Last Admin Trade Name Freq PRN Reason Stop Dose Admin Sodium Chloride 10 ml 01/30/24 11:46 01/30/24 11:46 Sodium Chloride 0.9% 10ml Syr (Rad Only) IV 02/29/24 11:45 10 ml NEEDED PRN Administration Maintain IV Site Discontinued Medications Generic Name Dose Route Start Last Admin Trade Name Freq PRN Reason Stop Dose Admin Acetaminophen 1,000 mg 01/30/24 11:21 01/30/24 11:37 Acetaminophen 1,000mg/100ml Vial IV 01/30/24 11:22 1,000 mg ONCE ONE Administration Iopamidol 75 ml 01/30/24 11:46 01/30/24 11:47 Iopamidol-370 (76%);100ml Bottle IV 01/30/24 11:47 75 ml ONCE ONE Administration Ketorolac Tromethamine 15 mg 01/30/24 11:21 01/30/24 11:38 Ketorolac 30mg/Ml Vial IV 01/30/24 11:22 15 mg ONCE ONE Administration ORDERS Category Date Time Status CT abdomen pelvis w con Stat Cat Scan 01/30/24 11:21 Completed Amylase Stat Lab 01/30/24 10:54 Completed CBC [Complete Blood Count Auto Diff] Stat Lab 01/30/24 10:54 Completed Comprehensive Metabolic Panel Stat Lab 01/30/24 10:54 Completed Lipase Stat Lab 01/30/24 10:54 Completed Trop I [Troponin I] Stat Lab 01/30/24 10:54 Completed Troponin I Q3H Lab 01/30/24 14:30 Ordered Troponin I Q3H Lab 01/30/24 17:30 Ordered UA [Urinalysis and Microscopic] Stat Lab 01/30/24 11:12 Completed Urine Culture Stat Micro 01/30/24 11:12 Received HEART Score History (anamnesis): Slightly suspicious ECG: Non-specific disturbance Age: 45-65 years Risk factors: 3 or more risk factors Troponin: </= normal limit HEART Score: 4 Medical Decision Narrative: 54-year-old male history of hypertension, hyperlipidemia, CAD status post stenting, cholecystectomy, diverticulitis status post partial colectomy presenting with abdominal pain. Patient states abdominal pain is epigastric, exertional, made worse with heavy lifting. Moderate, does not radiate. States that it is not associated with shortness of breath, vomiting, diarrhea, constipation. Patient states that the pains come and go, nothing in particular makes them better, other than rest. Nausea, but no other associated symptoms. No history of hernia. Last bowel movement yesterday and was diarrhea, nonbloody. Still passing gas. History was obtained via conversation with patient. On arrival, patient hemodynamically stable, alert, oriented x4, appropriate, GCS 15, moving all extremities spontaneously, pupils equal and reactive to light. Full physical exam performed and significant for abdomen is soft, nondistended, nontender. No overlying skin changes. No focal tenderness. No obvious hernia. Overall unremarkable. Bowel sounds within normal limits. Differential includes gastritis, gastroenteritis, ACS, NM, PUD, gastritis, enteritis, gastroenteritis, pancreatitis, SBO, colitis, diverticulitis, nephrolithiasis, UTI, choledocholithiasis, appendicitis, torsion, hepatitis, aortic pathology, mesenteric ischemia among others. Patient was given Toradol, acetaminophen for symptomatic management and correction of underlying abnormalities. Workup independently interpreted and significant for normal and nonactionable CBC. Chemistry nonactionable, but patient's LFTs are mildly elevated with AST 135/ALT 123, but patient denies drinking alcohol. Alkaline phosphatase and bilirubin normal. Troponin negative, lipase negative. Urinalysis without concern for UTI. CT abdomen pelvis without acute concern for intra-abdominal process, he does have some edematous loops of bowel concerning for enteritis. See radiology read for full review of final results. Sinus rhythm 65 beats a minute no ST or T wave changes concerning for acute ischemia. Patient does have Q waves in inferior and lateral leads likely from old NM. HI, QRS, QT intervals within normal limits. Heart score 4. On reevaluation, patient resting at baseline, no big change from arrival, but still in no acute distress. This likely represents enteritis versus IBS, versus other idiopathic abdominal pain. I feel it is very unlikely that patient's pains are life-threatening. He has been having these pains on and off for the past couple of months. Usually goes away by itself. Sometimes exertional, sometimes at rest. Unable to nail anything down. Exam and workup today completely benign. It was recommended he follow-up with his family doctor regarding this visit to the emergency department. Because patient at baseline without signs or symptoms of clinical decompensation, deemed appropriate for discharge. Results were relayed to patient who voiced understanding and were agreeable to outpatient management and follow up. I discussed my clinical impression with patient and answered all questions. At this time, the evidence for any other entities in the differential is insufficient to warrant any further testing or ED observation. This was explained as well. Advisory was given that persistent or worsening symptoms require further evaluation. I confirmed the understanding of this discussion. Critical Care Critical Care Time Critical Care Time: No
[2024-01-30 11:29] LABS: Microscopic, Urine URINE MICROSCOPIC (MICROSCOPIC)
[2024-01-30 11:32] LABS: Appearance,Urine CLEAR (Clear); Bilirubin,Urine Negative (Negative); Blood, Urine Negative (Negative); Color,Urine YELLOW (Yellow); Glucose,Urine (UA) Negative (Negative); Ketones,Urine Negative (Negative); Leukocyte Esterase,Urine Negative (Negative); Nitrate,Urine Negative (Negative); PH,Urine 5.5 (5.0-8.5); Protein,Urine Negative (Negative); Specific Gravity, Urine >= 1.030 (1.005-1.030); Urobilinogen,Urine 0.2 EU/dl (0.2)
--- NOTE | 2024-01-30 11:33 | PC.NURSE ---
PT TO CT
[2024-01-30] MEDS: ACETAMINOPHEN 1,000MG/100ML VIAL 1000 MG IV (11:37)
[2024-01-30] MEDS: KETOROLAC 30MG/ML VIAL 15 MG IV (11:38)
[2024-01-30 11:42] LABS: Bacteria,Urine Trace /lpf; Squamous Epithelial Cell,Urine Occasional #/hpf (0-5); WBC,Urine Occasional #/hpf (0-3)
--- NOTE | 2024-01-30 11:44 | PC.NURSE ---
PT RETURNED FROM CT
[2024-01-30] MEDS: SODIUM CHLORIDE 0.9% 10ML SYR (RAD ONLY) 10 ML IV (11:46)
--- NOTE | 2024-01-30 11:46 | ECG_ITS ---
APPROVED REPORT Exam: Resting ECG HR:65 bpm ECG Measurements Heart Rate 65 AXES MN 166 P 61 QRSd 107 QRS 60 QT 410 T 50 QTc 421 Conclusion SINUS RHYTHM LATERAL MYOCARDIAL INFARCTION , PROBABLY OLD [40+ ms Q WAVE AND/OR ST/T ABNORMALITY IN I/aVL/V5/V6] INFERIOR MYOCARDIAL INFARCTION , PROBABLY OLD [40+ ms Q WAVE AND/OR ST/T ABNORMALITY IN II/aVF] Electronically signed by : NORA BETANCOURT, 01/30/2024 15:44:17
[2024-01-30] MEDS: IOPAMIDOL-370 (76%);100ML BOTTLE 75 ML IV (11:47)
--- NOTE | 2024-01-30 11:54 | PC.NURSE ---
Rounded on pt. No needs voiced at this time. Call light remains within reach.
[2024-01-30 11:55] LABS: Troponin I < 0.01 ng/ml (0.00-0.034)
--- NOTE | 2024-01-30 13:00 | PC.NURSE ---
Pt ambulatory to bathroom. No other needs voiced. Call light remains within reach.
--- NOTE | 2024-01-30 13:36 | PC.NURSE ---
Rounded on pt. Warm blanket provided. No other needs voiced. Call light remains within reach.
== END 2024-01-30 14:13 | disposition home or self-care (01) ==
LOC: UTC 10:49 → ER 11:04
PROVIDERS: Nurse Practitioner Family; Emergency Provider Emergency Medicine; PCP Internal Medicine Adolescent Medicine
DX: R10.13 Epigastric pain (principal); I11.9 Hypertensive heart disease without heart failure; I25.10 Atherosclerotic heart disease of native coronary artery without angina pectoris; E78.5 Hyperlipidemia, unspecified; Z95.5 Presence of coronary angioplasty implant and graft; F17.210 Nicotine dependence, cigarettes, uncomplicated
CPT/HCPCS: 74177; 80053; 81001; 81003; 82150; 83690; 84484; 85025; 87086; 93005; 96374; 96375; 99285; J0131; Q9967

== ENCOUNTER 2024-02-06 17:35 | Emergency (ER) | payer BC, SELFPAY ==
[2024-02-06 17:35] VITALS: BP 130/89; PULSE 71; RESP 16; TEMP 36.7; O2SAT 99; BMI 26.6
[2024-02-06 17:38] VITALS: BP 130/89; O2SAT 100
--- NOTE | 2024-02-06 17:43 | ED_ITS ---
Discharge Plan Disposition Chief Complaint: Dizziness Prescriptions Prescriptions: No Action nitroglycerin 0.4 mg tablet, sublingual 0.4 mg SUBLINGUAL Q5-15M PRN (Reason: Chest Pain) Patient Comments: ONE TABLET UNDER TONGUE NEEDED FOR CHEST PAIN bupropion HCl 150 mg tablet extended release 24 hr 150 mg PO DAILY metoprolol succinate 25 mg tablet extended release 24 hr 12.5 mg PO DAILY furosemide [Lasix] 20 mg tablet 20 mg PO DAILY Qty: 30 11RF spironolactone 25 mg tablet 25 mg PO DAILY Qty: 30 11RF Entresto 24-26 mg tablet 1 tab PO BID Qty: 90 1RF isosorbide mononitrate 30 mg tablet extended release 24 hr 30 mg PO DAILY Qty: 30 5RF atorvastatin 80 mg tablet 80 mg PO HS aspirin 81 MG tablet,delayed release (DR/EC) 81 mg PO DAILY pantoprazole [Protonix] 40 mg tablet,delayed release (DR/EC) 40 mg PO DAILY Referrals Follow up/Referrals: Clint Jules MD [Primary Care Provider] - See instructions Discharge ED Provider: Jc Palmer General Adult [facility] General Chief complaint: Dizziness Stated complaint: confused, weakness Time Seen by Provider: 02/06/24 17:37 Mode of Arrival: Ambulatory Source of Information: Patient Limitations: No Limitations Description of Symptoms (Recalled from ER Triage Doc. by RN): Patient reports increased dizziness and yawning. 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 Related Data Home Medications Medication Instructions Recorded Confirmed nitroglycerin 0.4 mg sublingual 0.4 mg sublingual Q5-15M PRN Chest 01/06/21 01/30/24 tablet Pain aspirin 81 mg tablet,delayed 81 mg PO DAILY heart health 10/14/22 01/30/24 release atorvastatin 80 mg tablet 80 mg PO HS cholesterol 10/14/22 01/30/24 bupropion HCl 150 mg 24 hr tablet, 150 mg PO DAILY . 03/31/23 01/30/24 extended release pantoprazole 40 mg tablet,delayed 40 mg PO DAILY Acid Reflux 04/20/23 01/30/24 release (Protonix) metoprolol succinate 25 mg 12.5 mg PO DAILY htn 05/05/23 01/30/24 tablet,extended release 24 hr Previous Rx's Medication Instructions Recorded furosemide 20 mg tablet (Lasix) 20 mg PO DAILY #30 tabs 08/28/23 spironolactone 25 mg tablet 25 mg PO DAILY #30 tabs 09/01/23 sacubitril 24 mg-valsartan 26 mg 1 tab PO BID #90 tabs 09/20/23 tablet (Entresto) isosorbide mononitrate 30 mg 30 mg PO DAILY #30 tabs 11/23/23 tablet,extended release 24 hr Allergies Allergy/AdvReac Type Severity Reaction Status Date / Time No Known Allergies Allergy Verified 01/30/24 10:08 [facility] Disclaimer: The information contained in this section may have been updated after the patient was seen, as this information can be updated by other users. Medical History (Updated 01/30/24 @ 10:49 by Albert Bernal APRN) LV dysfunction Abnormal result of cardiovascular function study Pneumonia History of COVID-19 History of diverticulitis History of heart attack Hyperlipidemia Hypertension History of left heart catheterization (LHC) Skin cancer Gastroesophageal reflux disease Surgical History History of esophagogastroduodenoscopy (EGD) History of heart artery stent History of colon resection History of cholecystectomy History of colonoscopy Family History Father Family history of COPD (chronic obstructive pulmonary disease) Other Family history of cancer Social History Smoking Status: Current every day smoker tobacco type: cigarettes packs per day: 1 years smoked: 30 alcohol intake: never substance use type: denies use current occupational status: employed Travel in the last 8 weeks: None household members: none housing: house 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
--- NOTE | 2024-02-06 17:50 | XR_ITS ---
PROCEDURE INFORMATION: Exam: XR Chest Exam date and time: 02/06/2024 5:46 PM Age: 54 years old Clinical indication: Other: Fbs in throat; Additional info: Fbs in throat, smoking history TECHNIQUE: Imaging protocol: Radiologic exam of the chest. Views: 2 views. COMPARISON: CT LUNG SCREENING 07/27/2022 1:08 PM FINDINGS: Lungs: No consolidation. Pleural spaces: No pleural effusion. No pneumothorax. Heart/Mediastinum: No cardiomegaly. Bones/joints: Old left rib fractures. Intraperitoneal space: Right upper quadrant surgical clips. IMPRESSION: No acute pulmonary findings.
--- NOTE | 2024-02-06 17:51 | HMH.EDGENADL ---
Discharge Plan Disposition Patient Disposition: Home, Self-Care Chief Complaint: Dizziness Prescriptions Prescriptions: No Action nitroglycerin 0.4 mg tablet, sublingual 0.4 mg SUBLINGUAL Q5-15M PRN (Reason: Chest Pain) Patient Comments: ONE TABLET UNDER TONGUE NEEDED FOR CHEST PAIN bupropion HCl 150 mg tablet extended release 24 hr 150 mg PO DAILY metoprolol succinate 25 mg tablet extended release 24 hr 12.5 mg PO DAILY furosemide [Lasix] 20 mg tablet 20 mg PO DAILY Qty: 30 11RF spironolactone 25 mg tablet 25 mg PO DAILY Qty: 30 11RF Entresto 24-26 mg tablet 1 tab PO BID Qty: 90 1RF isosorbide mononitrate 30 mg tablet extended release 24 hr 30 mg PO DAILY Qty: 30 5RF atorvastatin 80 mg tablet 80 mg PO HS aspirin 81 MG tablet,delayed release (DR/EC) 81 mg PO DAILY pantoprazole [Protonix] 40 mg tablet,delayed release (DR/EC) 40 mg PO DAILY Referrals Follow up/Referrals: Clint Jules MD [Primary Care Provider] - See instructions Activity Restrictions/Add. Instructions Additional Instructions/Restrictions: Call your family doctor to establish care for this visit to the emergency department and schedule follow-up within 48 hours to ensure improvement. Be sure to stay plenty hydrated. Clinical Impressions Clinical Impression: Fatigue Discharge ED Provider: Jc Palmer General Adult HPI General Chief complaint: Dizziness Stated complaint: confused, weakness Time Seen by Provider: 02/06/24 17:37 Mode of Arrival: Ambulatory Source of Information: Patient Limitations: No Limitations Description of Symptoms (Recalled from ER Triage Doc. by RN): Patient reports increased dizziness and yawning. 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 History of Present Illness HPI narrative: 54-year-old male history of hypertension, hyperlipidemia, CAD status post stenting, cholecystectomy, diverticulitis status post partial colectomy presenting with multiple complaints. Patient states that for the past few months, he has felt tired, generally weak, disoriented, and had increased yawning. When he yawns, he has a tugging sensation under his chin. He states I know there is something wrong, there has to be. He has been following with his family doctor for this, was seen in the emergency department Please note that above description of symptoms, in this electronic medical record under categorization of recalled from ER triage doctor by RN are reflective of an initial nursing assessment, however, is not reflective of my full history and physical exam that was personally taken and clarified. Consequentially, this preceding description of symptoms, which may include the patient's categorized chief complaint in the EMR, do not reflect my personal clinical impression, and the ultimate description of history of present illness and patient stated complaints should be deferred to this section of the note. Unless stated otherwise or congruent with this section of the note, additional signs, symptoms, or incongruence should be interpreted as inaccurate with my clinical impression. Related Data Home Medications Medication Instructions Recorded Confirmed nitroglycerin 0.4 mg sublingual 0.4 mg sublingual Q5-15M PRN Chest 01/06/21 01/30/24 tablet Pain aspirin 81 mg tablet,delayed 81 mg PO DAILY heart health 10/14/22 01/30/24 release atorvastatin 80 mg tablet 80 mg PO HS cholesterol 10/14/22 01/30/24 bupropion HCl 150 mg 24 hr tablet, 150 mg PO DAILY . 03/31/23 01/30/24 extended release pantoprazole 40 mg tablet,delayed 40 mg PO DAILY Acid Reflux 04/20/23 01/30/24 release (Protonix) metoprolol succinate 25 mg 12.5 mg PO DAILY htn 05/05/23 01/30/24 tablet,extended release 24 hr Previous Rx's Medication Instructions Recorded furosemide 20 mg tablet (Lasix) 20 mg PO DAILY #30 tabs 08/28/23 spironolactone 25 mg tablet 25 mg PO DAILY #30 tabs 09/01/23 sacubitril 24 mg-valsartan 26 mg 1 tab PO BID #90 tabs 09/20/23 tablet (Entresto) isosorbide mononitrate 30 mg 30 mg PO DAILY #30 tabs 11/23/23 tablet,extended release 24 hr Allergies Allergy/AdvReac Type Severity Reaction Status Date / Time No Known Allergies Allergy Verified 01/30/24 10:08 [facility] Disclaimer: The information contained in this section may have been updated after the patient was seen, as this information can be updated by other users. Medical History (Updated 02/06/24 @ 19:45 by Jc Palmer MD) LV dysfunction Abnormal result of cardiovascular function study Pneumonia History of COVID-19 History of diverticulitis History of heart attack Hyperlipidemia Hypertension History of left heart catheterization (LHC) Skin cancer Gastroesophageal reflux disease Surgical History History of esophagogastroduodenoscopy (EGD) History of heart artery stent History of colon resection History of cholecystectomy History of colonoscopy Family History Father Family history of COPD (chronic obstructive pulmonary disease) Other Family history of cancer Social History Smoking Status: Current every day smoker tobacco type: cigarettes packs per day: 1 years smoked: 30 alcohol intake: never substance use type: denies use current occupational status: employed Travel in the last 8 weeks: None household members: none housing: house 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 ROS Obtained: Yes All systems reviewed & no additional complaints except as documented Physical Exam General General appearance: alert and in no apparent distress Head Head exam: atraumatic and normocephalic Eye Eye exam: Present normal appearance, PERRL and EOMI ENT ENT exam: Present mucous membranes moist Neck Neck exam: Present normal inspection, full ROM and trachea midline Respiratory Respiratory exam: Absent respiratory distress, wheezes, stridor, accessory muscle use or prolonged expiratory phase Cardiovascular Cardiovascular exam: Present normal rhythm Abdominal Exam Abdominal exam: Present soft; Absent distention, tenderness, guarding, rebound or rigidity Extremities Exam Extremities exam: Absent edema Neurological Exam Neurological exam: Present alert, oriented X3, CN II-XII intact and normal gait; Absent motor sensory deficit Skin Skin exam: Present warm and dry; Absent diaphoresis or erythema Medical Decision Making Medical Records Medical records reviewed: Yes I reviewed the patient's medical records. Mckay Inquiry Pt receiving controlled substance: No Mckay was queried for this patient: No Vital Signs: 02/06/24 17:35 02/06/24 17:38 02/06/24 18:30 Temperature 98.0 F Temperature Source Oral Pulse Rate 61 Pulse Rate [Radial] 71 Respiratory Rate 16 Blood Pressure 130/89 117/73 Blood Pressure [Right Arm] 130/89 Blood Pressure Mean [Right Arm] 102 Blood Pressure Source [Right Arm] Automatic Cuff Blood Pressure Position [Right Arm] Sitting 02 Sat by Pulse Oximetry 99 100 96 Oxygen Delivery Method Room Air Lab Data Lab Results 02/06/24 18:03: WBC 7.7, RBC 4.83, Hgb 16.0, Hct 47.8, MCV 99.0 H, MCH 33.1 H, MCHC 33.4, RDW 14.0, Plt Count 209, MPV 8.3, Neut % (Auto) 64.6, Lymph % (Auto) 27.0, Ripley % (Auto) 5.3, Eos % (Auto) 1.7, Baso % (Auto) 1.3, Neut # (Auto) 5.0, Lymph # (Auto) 2.1, Ripley # (Auto) 0.4, Eos # (Auto) 0.1, Baso # (Auto) 0.1, Sodium 139, Potassium 4.1, Chloride 105, Carbon Dioxide 29, Anion Gap 9.1, BUN 15, Creatinine 0.90, Estimated Creat Clear 98, Estimated GFR 88, Est GFR ( Amer) 106, Glucose 118 H, Calcium 9.4, Magnesium 1.8, Total Bilirubin 0.7, AST 40, ALT 77, Alkaline Phosphatase 68, Total Protein 6.7, Albumin 4.3, Globulin 2.4, Albumin/Globulin Ratio 1.8 02/06/24 18:03 02/06/24 18:03 Orders (Tests/Meds): ED MEDICATIONS Discontinued Medications Generic Name Dose Route Start Last Admin Trade Name Freq PRN Reason Stop Dose Admin Lactated Ringer's 1,000 mls @ 999 mls/hr 02/06/24 17:48 02/06/24 18:13 Lactated Ringer's 1000 Ml Bag IV 02/06/24 18:48 999 mls/hr .Q1H1M ONE Administration ORDERS Category Date Time Status CXR 2 view (NOT portable) [XR chest 2V] Stat Exams 02/06/24 17:50 Completed CBC w/Auto Diff [Complete Blood Count Auto Diff] Stat Lab 02/06/24 18:03 Completed CMP [Comprehensive Metabolic Panel] Stat Lab 02/06/24 18:03 Completed Magnesium Stat Lab 02/06/24 18:03 Completed Medical Decision Narrative: 54-year-old male history of hypertension, hyperlipidemia, CAD status post stenting, cholecystectomy, diverticulitis status post partial colectomy presenting with multiple complaints. Patient states that for the past few months, he has felt tired, generally weak, disoriented, and had increased yawning. When he yawns, he has a tugging sensation under his chin. He states I know there is something wrong, there has to be. He has been following with his family doctor for this, was seen in the emergency department. History obtained with patient. On arrival, patient hemodynamically stable, very well-appearing, appropriate, alert and oriented, unremarkable physical exam. Cardiopulmonary, abdominal, neurologic, etc. Differential includes depression, anxiety, illness anxiety disorder, metabolic abnormality, among others. Independent rotation patient's workup demonstrates normal CBC and chemistry. Two-view chest x-ray with nonactionable findings, no cardiopulmonary airspace disease. On reevaluation, patient still resting at baseline. Because patient at baseline without signs or symptoms of clinical decompensation, deemed appropriate for discharge. Results were relayed to patient who voiced understanding and were agreeable to outpatient management and follow up. I discussed my clinical impression with patient and answered all questions. At this time, the evidence for any other entities in the differential is insufficient to warrant any further testing or ED observation. This was explained as well. Advisory was given that persistent or worsening symptoms require further evaluation. I confirmed the understanding of this discussion. Critical Care Critical Care Time Critical Care Time: No
[2024-02-06] MEDS: LACTATED RINGERS 1000ML 1,000 ML 999 ML IV (18:13)
[2024-02-06 18:27] LABS: Basophils # 0.1 K/mm3 (0-0.2); Basophils % 1.3 % (0.1-2.0); Eosinophils # 0.1 K/mm3 (0.0-0.4); Eosinophils % 1.7 % (0.1-12.0); Hematocrit 47.8 % (42.0-52.0); Lymphocytes # 2.1 K/mm3 (0.7-4.5); Mean Corpuscular HGB Conc 33.4 g/dL (31.8-35.4); Mean Corpuscular Hemoglobin 33.1 pg (27.0-31.2); Mean Platelet Volume 8.3 fl (7.4-10.4); Monocytes # 0.4 K/mm3 (0.1-1.0); Monocytes % 5.3 % (1.7-9.3); Neutrophils % 64.6 % (37.0-80.0); Platelet Count 209 K/mm3 (142-424); Red Blood Count 4.83 M/mm3 (4.60-6.20); White Blood Count 7.7 K/mm3 (4.8-10.8)
[2024-02-06 18:30] VITALS: BP 117/73; PULSE 61; O2SAT 96
[2024-02-06 18:33] LABS: Alanine Aminotransferase 77 U/L (12-78); Albumin Level 4.3 g/dl (3.5-5.0); Albumin/Globulin Ratio 1.8 (1.1-1.8); Alkaline Phosphatase 68 U/L (38-126); Anion Gap 9.1 mEq/L (5-15); Aspartate Amino Transferase 40 U/L (17-59); Bilirubin,Total 0.7 mg/dl (0.2-1.3); Blood Urea Nitrogen 15 mg/dl (9-20); Calcium 9.4 mg/dl (8.4-10.2); Carbon Dioxide 29 mmol/L (22.0-30.0); Chloride 105 mmol/L (98-107); Creatinine Clearance Estimated 98 mL/min (50-200); Estimated Glomerular Filt Rate 88 ml/min (>60); GFR (African American) 106 ML/MIN (>60); Globulin 2.4 g/dL (1.3-3.2); Glucose 118 mg/dl (74-100); Magnesium 1.8 mg/dl (1.6-2.3); Potassium 4.1 mmoL/L (3.5-5.1); Sodium 139 mmol/L (136-145); Total Protein,Serum 6.7 g/dl (6.3-8.2)
[2024-02-06 20:08] VITALS: BP 130/88; PULSE 61; RESP 18; TEMP 36.7; O2SAT 96
--- NOTE | 2024-02-06 20:09 | PC.NURSE ---
pt standing out in hallway. this RN went to [facility] on pt. pt states take this out of my arm so i can go home. IV was taken out and pt DC home
== END 2024-02-06 20:10 | disposition home or self-care (01) ==
PROVIDERS: Emergency Provider Emergency Medicine; PCP Internal Medicine Adolescent Medicine
DX: R53.83 Other fatigue (principal); R41.0 Disorientation, unspecified; F17.210 Nicotine dependence, cigarettes, uncomplicated; K21.9 Gastro-esophageal reflux disease without esophagitis; I11.9 Hypertensive heart disease without heart failure; I25.10 Atherosclerotic heart disease of native coronary artery without angina pectoris; E78.5 Hyperlipidemia, unspecified; Z95.5 Presence of coronary angioplasty implant and graft
CPT/HCPCS: 71046; 80053; 83735; 85025; 96360; 99284

== ENCOUNTER 2024-02-08 09:44 | Outpatient (CLI) | payer BC, SELFPAY ==
--- NOTE | 2024-02-08 09:54 | CT_ITS ---
FINAL REPORT CLINICAL HISTORY: COUGH WITH HEMOPTYSIS COMPARISON: Low-dose chest CT dated 07/27/2022 FINDINGS: CT CHEST WITH CONTRAST TECHNIQUE: Pre and postcontrast axial images through the chest were performed by computed tomography. This study was performed with techniques to keep radiation doses as low as reasonably achievable, (ALARA). Individualized dose reduction techniques using automated exposure control or adjustment of mA and/or kV according to the patient's size were employed. FINDINGS: There is no axillary adenopathy. There is no hilar or mediastinal adenopathy. A coronary artery stent is noted. The heart size is normal. There is no pericardial or pleural effusion. Limited images of the upper abdomen are unremarkable. No suspicious infiltrate or nodule identified. IMPRESSION: No acute process. Reviewed, Interpreted and Dictated by Yayo Friend MD Transcribed by Angela Salcedo Authenticated and . [facility]
[2024-02-08] MEDS: IOPAMIDOL-370 (76%);100ML BOTTLE 75 ML IV (10:35)
== END 2024-02-08 23:59 | disposition home or self-care (01) ==
LOC: RAD 09:45
PROVIDERS: PCP Internal Medicine Adolescent Medicine; Visit Provider Internal Medicine Adolescent Medicine
DX: R04.2 Hemoptysis (principal)
CPT/HCPCS: 71270; Q9967

== ENCOUNTER 2024-10-18 15:01 | Outpatient (CLI) | payer BC, SELFPAY ==
--- NOTE | 2024-10-18 15:12 | CA_ITS ---
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 PRE-op, Smoker, HTN, HLD, GERDHx-GA 2D Dimensions Left Atrium 3.86 cm LA Volume 46.70 mL LA Volume Index 25.968518 mL/m2 (M/F) 16-34 M-Mode Dimensions RVDd 1.60 cm (0.9-2.6) LA Diam 3.84 cm (1.9-4.0) LVDd 5.46 cm (3.5-5.7) LVDs 3.58 cm (3.5-5.7) IVSd 0.82 cm (0.6-1.1) PWd 0.85 cm (0.6-1.1) EF (Teich) 63.00% EPSs 0.50 cm FS 34.40% EDV (Teich) 145.00 mL TAPSE 2.35 (<1.7) ESV (Teich) 53.70 mL LV Diastology E Decel Time 190 (160-240 msec) E/A Ratio 0.98 MED A' 11.50 cm/s LAT A' 13.30 cm/s Aortic Valve REYNA Index 0.97 cm2/m2 AoV Peak Fabian. 142.0 (50-130 cm/s) AO Peak GR. 8.10 mmHg AO Mean GR. 4.00 (<5 mmHg) AO VTI 28.9 (18-25 cm) REYNA (VTI) 1.82 (2.5-4.5 cm2) Mitral Valve MV A Velocity 90.0 (40-130 cm/s) E/A Ratio 0.98 Pulmonary Valve PV Peak Velocity 85.0 (50-150 cm/s) GA End VMAX 207.0 cm/s Left Ventricle The left ventricle is normal size. The left ventricular systolic function is normal. The left ventricular ejection fraction is within the normal range. There is increased LV wall thickness. There is normal LV segmental wall motion. The left ventricular diastolic function is normal. LVEF is 55%. Right Ventricle The right ventricle is normal size. The right ventricular systolic function is normal. Atria The left atrium size is normal. The right atrium size is normal. There is no Doppler evidence of interatrial shunt. Aortic Valve The aortic valve is mildly thickened. There is no aortic valvular stenosis. No aortic regurgitation is present. Mitral Valve The mitral valve is normal in structure. No evidence of mitral valve stenosis. Mild mitral regurgitation. Tricuspid Valve Tricuspid valve is grossly normal in structure and function. Trace tricuspid regurgitation. There is insufficient TR jet to estimate RVSP. Pulmonic Valve The pulmonary valve is normal in structure. Mild pulmonic regurgitation. Great Vessels The aortic root is normal in size. The ascending aorta is normal in size. IVC is normal in size and collapses >50% with inspiration. Pericardium There is no pericardial effusion. Other Information Study Quality: Fair Conclusion Normal biventricular systolic function. Mild MR, mild PI. Electronically signed by : Chioma Ramirez MD 10/23/2024 15:08:02
== END 2024-10-18 23:59 | disposition home or self-care (01) ==
LOC: RT 15:02
PROVIDERS: PCP Internal Medicine Adolescent Medicine; Visit Provider Nurse Practitioner Family
DX: I34.0 Nonrheumatic mitral (valve) insufficiency (principal); I37.1 Nonrheumatic pulmonary valve insufficiency; I42.9 Cardiomyopathy, unspecified; I51.9 Heart disease, unspecified
CPT/HCPCS: 93306

== ENCOUNTER 2025-02-05 10:05 | Day surgery (SDC) | payer BC, SELFPAY ==
[2025-02-04 15:19] VITALS: BMI 27.4
[2025-02-05] VITALS (7 sets, daily range): BP systolic 93–133; BP diastolic 57–78; PULSE 53–61; RESP 16–18; TEMP 36.1–36.2; O2SAT 94–100
[2025-02-05] MEDS: LACTATED RINGERS 1000ML 1,000 ML 50 ML IV (11:15)
--- NOTE | 2025-02-05 12:05 | P.PNANES_ITS ---
[facility] Disclaimer: The information contained in this section may have been updated after the patient was seen, as this information can be updated by other users. Medical History Pre-op evaluation LV dysfunction Abnormal result of cardiovascular function study Pneumonia History of COVID-19 History of diverticulitis History of heart attack Hyperlipidemia Hypertension History of left heart catheterization (LHC) Skin cancer Gastroesophageal reflux disease Surgical History History of esophagogastroduodenoscopy (EGD) History of heart artery stent History of colon resection History of cholecystectomy History of colonoscopy Family History Father Family history of COPD (chronic obstructive pulmonary disease) Other Family history of cancer Social History (Updated 02/05/25 @ 11:14 by Leona Enciso RN) Smoking Status: Current every day smoker tobacco type: cigarettes packs per day: 1 years smoked: 30 alcohol intake: never substance use type: denies use current occupational status: employed Travel in the last 8 weeks: None household members: none housing: house 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 Have you lived/traveled outside [place] in past 30 days?: No Contact w/someone who lives/traveled outside [place] past 30 days?: No Exposure to someone with infectious disease in past 14 days?: No Do you have a fever (greater than 100.4 F or 38 C)?: No Have you tested positive for COVID-19: No Exposed to someone with COVID-19 in past 14 days?: No Do you have a sore throat?: No Do you have a cough?: No Do you have any weakness?: No Are you experiencing any nausea/vomitting?: No Do you have any diarrhea?: No Are you experiencing any unusual bleeding?: No Do you have any muscle aches/pain?: No Do you have any abdominal pain?: No Are you experiencing loss of taste or smell?: No [facility] Anesthesia Checklist Patient Identification Patient Identification: Verbal (Name & ) Structural Data Admitted From: Home Planned Operative Procedure/s: colonoscopy Consent for Planned Operative Procedure(s) Verified: Yes NPO Status Verified Time NPO: 00:00 Airway Assessment Mallampati Score:: Class II C-Spine Mobility Assessed: Yes TMJ Mobility Assessed: Yes Dentition: Partials Neurological Assessment Level of Consciousness: Awake, Alert and Appropriate Anesthesia Plan Anesthesia Risk discussed: Yes Anesthesia Plan: Verified ASA Class: III Anesthesia Type: MAC
--- NOTE | 2025-02-05 12:08 | P.HP_ITS ---
History of Present Illness *Admission Date: 02/05/25 *Reason for visit:: Screening/surveillance colonoscopy *History of present illness: Mr. Tellez is a 55-year-old gentleman who is here for screening/surveillance colonoscopy. His last colonoscopy was more than 10 years ago. The examination is deemed medically necessary for screening colonoscopy. The patient has been seen, interviewed and examined prior to the procedure by both myself and the anesthesia provider. [facility] Disclaimer: The information contained in this section may have been updated after the patient was seen, as this information can be updated by other users. Medical History (Updated 02/05/25 @ 12:10 by Simón Owusu II, MD) Pre-op evaluation LV dysfunction Abnormal result of cardiovascular function study Pneumonia History of COVID-19 History of diverticulitis History of heart attack Hyperlipidemia Hypertension History of left heart catheterization (LHC) Skin cancer Gastroesophageal reflux disease Surgical History History of esophagogastroduodenoscopy (EGD) History of heart artery stent History of colon resection History of cholecystectomy History of colonoscopy Family History Father Family history of COPD (chronic obstructive pulmonary disease) Other Family history of cancer Social History (Updated 02/05/25 @ 11:14 by Leona Enciso RN) Smoking Status: Current every day smoker tobacco type: cigarettes packs per day: 1 years smoked: 30 alcohol intake: never substance use type: denies use current occupational status: employed Travel in the last 8 weeks: None household members: none housing: house 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 Have you lived/traveled outside [place] in past 30 days?: No Contact w/someone who lives/traveled outside [place] past 30 days?: No Exposure to someone with infectious disease in past 14 days?: No Do you have a fever (greater than 100.4 F or 38 C)?: No Have you tested positive for COVID-19: No Exposed to someone with COVID-19 in past 14 days?: No Do you have a sore throat?: No Do you have a cough?: No Do you have any weakness?: No Are you experiencing any nausea/vomitting?: No Do you have any diarrhea?: No Are you experiencing any unusual bleeding?: No Do you have any muscle aches/pain?: No Do you have any abdominal pain?: No Are you experiencing loss of taste or smell?: No Other Medical History Have you received the Flu Vaccine for this season: No Have you received the Pneumonia Vaccine: No Review of Systems Review of Systems Review of systems (narrative): Negative *Cardiovascular Comments: Negative *Gastrointestinal Comments: Negative *Genitourinary Comments: Negative *Musculoskeletal Comments: Negative *Neurologic Comments: Negative Meds Home Medications and Allergies Home Medications ?Medication ?Instructions ?Recorded ?Confirmed ?Type nitroglycerin 0.4 mg sublingual 0.4 mg sublingual Q5-15M PRN Chest 01/06/21 02/05/25 History tablet Pain aspirin 81 mg tablet,delayed 81 mg PO DAILY heart health 10/14/22 02/05/25 History release atorvastatin 80 mg tablet 80 mg PO HS cholesterol 10/14/22 02/05/25 History bupropion HCl 150 mg 24 hr tablet, 150 mg PO DAILY . 03/31/23 02/05/25 History extended release pantoprazole 40 mg tablet,delayed 40 mg PO DAILY Acid Reflux 04/20/23 02/05/25 History release (Protonix) metoprolol succinate 25 mg 12.5 mg PO DAILY htn 05/05/23 02/05/25 History tablet,extended release 24 hr spironolactone 25 mg tablet 25 mg PO DAILY #30 tabs 09/04/24 02/05/25 Rx isosorbide mononitrate 30 mg See Rx Instructions .Route 11/18/24 02/05/25 Rx tablet,extended release 24 hr .COMPLEX #30 tabs sacubitril 24 mg-valsartan 26 mg See Rx Instructions .Route 11/28/24 02/05/25 Rx tablet (Entresto) .COMPLEX #90 tabs sodium,potassium,mag sulfates 17.5 See Rx Instructions PO .COMPLEX 01/22/25 02/04/25 Rx gram-3.13 gram-1.6 gram oral soln #354 mL (Suprep Bowel Prep Kit) New Prescriptions to Start Prescriptions: Allergies Allergy/AdvReac Type Severity Reaction Status Date / Time No Known Allergies Allergy Verified 02/05/25 10:59 Exam Data for Last 24 hours Vital signs and Labs for Last 24 Hours: Temp Pulse Resp BP Pulse Ox O2 Del Method O2 Flow Rate 97.2 F L 61 18 118/77 100 Nasal Cannula 5 02/05/25 11:05 02/05/25 11:05 02/05/25 11:05 02/05/25 11:05 02/05/25 11:05 02/05/25 12:03 02/05/25 12:03 I & O for Last 24 hours: Intake & Output 02/02/25 02/03/25 02/04/25 02/05/25 23:59 23:59 23:59 23:59 Weight 170 lb *Routine HEENT Exam Head: Present normocephalic Eye: Present EOMI and PERRL ENT: Present mucous membranes moist *Routine Neck Exam Neck: Present supple *Routine Respiratory Exam Respiratory: Present CTA bilaterally *Routine Cardiovascular Exam Cardiovascular: Present RRR *Routine Abdominal Exam Abdominal: Present soft and normoactive bowel sounds; Absent tenderness *Routine Rectal Exam Rectal:: deferred *Routine Genitalia Exam Genitalia:: deferred *Routine Extremities Exam Extremities: Absent cyanosis, clubbing or edema *Routine Skin Exam Skin: Present warm; Absent rash *Routine Neurological Exam Neurological: Present alert and oriented X3 Assessment and Plan *Assessment and plan (1) Screening for colon cancer: Status: Acute Category: Medical Code(s): Z12.11 - Encounter for screening for malignant neoplasm of colon (2) Personal history of colon polyps, unspecified: Status: Acute Category: Medical Code(s): Z86.0100 - Personal history of colon polyps, unspecified Plan A/P: 1. Screening for colon cancer is the preprocedural diagnosis. The patient's last colonoscopy was more than 10 years ago. He has had 2 prior colonoscopies and his last colonoscopy was normal. His first colonoscopy did reveal a colon polyp. The patient will be anesthetized/sedated using MAC sedation. The patient has been seen and examined. Cardiac and lung assessment prior to the examination is stable. Proceed with planned surveillance colonoscopy.
--- NOTE | 2025-02-05 12:27 | [facility].PROCNOTE ---
[facility] Procedure Note Date: 02/05/25 Time: 12:27 Procedure Note:: Colonoscopy Procedure Report: Colonoscopy with cold snare polypectomy Endoscopist: Simón Owusu II, MD Referring physician: Clint Jules M.D. Date of Procedure: February 05, 2025 Equipment: Olympus 190 variable stiffness pediatric colonoscope Sedation: MAC sedation Indication: Mr. Tellez is a 55-year-old gentleman who is here for screening/surveillance colonoscopy. He does state that he has had 2 prior colonoscopies and his last colonoscopy was more than 10 years ago. He does state that on his first colonoscopy he had polyps but his last colonoscopy was normal. He has had some longstanding IBS with alternating constipation and loose bowel movements. He does report incomplete defecation/incomplete bowel evacuation. He notes some heaviness on the left side which is a discomfort. All of this is long-term. He does have some bloating and gassiness. He reports no rectal bleeding or mucus with his bowel movements. He reports no weight loss or family history of colon cancer. Procedure: Prior to the procedure, a history and physical exam was performed, and patient's medications and allergies were reviewed. The risks, benefits and alternatives of the sedation and procedure were discussed with the patient. All questions were answered and informed consent was obtained. The patient was brought to the procedure room. Patient identification and proposed procedure were verified by the physician and the nurse. The patient was placed in a left lateral decubitus position and the scope was passed under direct vision. Throughout the procedure, the patient's blood pressure, pulse, and oxygen saturations were monitored continuously. The colonoscopy was accomplished without difficulty. The patient tolerated the procedure well. Findings: On digital rectal examination there was normal rectal tone. There were no external hemorrhoids. The colonoscope was introduced through the anal canal to the rectum and advanced to the cecum. The ileocecal valve and appendiceal orifice were identified. The scope was advanced a short distance into the ileum which appeared grossly normal. The scope was then withdrawn into the colon. There were 11 colon polyps (cecum x 1 (4 mm), ascending x 4 (3, 4, 6 and 9 mm), transverse x 3 (3, 4 and 4 mm), descending x 1 (5 mm), sigmoid x 1 (5 mm) and rectosigmoid x 1 (8 to 9 mm)). These were all removed via cold snare polypectomy. The remaining cecum, ascending, transverse, descending colon were grossly normal. There did appear to be a surgical anastomosis at the juncture of the descending and distal sigmoid. There were no other mucosal abnormalities identified. The rectum was normal. Upon retroflexion within the rectum there were grade 2-3 internal hemorrhoids. The preparation was excellent throughout with [place] Preparation Score of 9. The cecal time was 17 minutes. Impression: 1. Colonic polyps x 11 (ranging in size from 3 to 9 mm) 2. Prior sigmoid resection with normal colocolonic anastomosis 3. Grade 2-3 internal hemorrhoids Plan: I will follow-up the polyp histology and recommend repeat surveillance colonoscopy again in 3 years based upon the number, size and adenomatous polyp histology. I will encourage a fiber bowel regimen on a long-term daily maintenance basis. We will also discussed dietary measures to follow.
== END 2025-02-05 13:18 | disposition home or self-care (01) ==
PROVIDERS: PCP Internal Medicine Adolescent Medicine; Visit Provider Internal Medicine Gastroenterology
PROC: 0DJD8ZZ Inspection of Lower Intestinal Tract, Via Natural or Artificial Opening Endoscopic (ICD-10-PCS; CPT 45378; principal; 2025-02-05 11:30)
DX: D12.2 Benign neoplasm of ascending colon (principal); D12.0 Benign neoplasm of cecum; D12.4 Benign neoplasm of descending colon; D12.5 Benign neoplasm of sigmoid colon; D12.3 Benign neoplasm of transverse colon; K63.5 Polyp of colon; K64.9 Unspecified hemorrhoids; Z12.11 Encounter for screening for malignant neoplasm of colon; Z86.0100 Personal history of colon polyps, unspecified; K58.2 Mixed irritable bowel syndrome
CPT/HCPCS: 45385; J7120